=== PATIENT | female | born 1965 | race Caucasian/White ===

== ENCOUNTER 2018-02-19 16:58 | Emergency (ER) | payer SELFPAY ==
--- NOTE | 2018-02-19 17:06 | EDM.PDOC ---
<Fili Ceja E - Last Filed: 02/19/18 17:17> ED HPI GENERAL MEDICAL PROBLEM - General Stated Complaint: BACK PAIN Time Seen by Provider: 02/19/18 16:59 Source of Information: Reports: Patient History Limitations: Reports: No Limitations - History of Present Illness INITIAL COMMENTS - FREE TEXT/NARRATIVE: HISTORY AND PHYSICAL: History of present illness: Patient is a 52-year-old female who presents to the emergency room with complaints of low lumbar back pain. She does state she has chronic back pain from a workmen's comp injury about a year and a half ago. She did have a recent lumbar CT on 11/22/2017 which did show multiple degenerative disc disease within the lumbar spine and small diffuse disc bulging. She has had pain contracts in the past with a provider out of [place] which she states she stopped needing as of March 2017. Insect time she states she has not had much pain or problems with that. She uses Tylenol and ibuprofen as needed at home. Today she was reaching over and bending at the waist and felt a spasm to her low lumbar back which radiates across low region bilaterally but does not radiate into her glutes or legs. She has not had any urinary or fecal incontinence. She denies any numbness or tingling to her distal extremities. She is able to ambulate without any difficulty or weakness. Denies any recent injury, trauma or falls. Review of systems: As per history of present illness and below otherwise all systems reviewed and negative. Past medical history: As per history of present illness and as reviewed below otherwise noncontributory. Surgical history: As per history of present illness and as reviewed below otherwise noncontributory. Social history: No reported history of drug or alcohol abuse. Family history: As per history of present illness and as reviewed below otherwise noncontributory. Physical exam: General: Well-developed and well-nourished 52-year-old female. Alert and oriented. Nontoxic appearing and in no acute distress. HEENT: Atraumatic, normocephalic, pupils equal and reactive bilaterally, negative for conjunctival pallor or scleral icterus, mucous membranes moist, throat clear, neck supple, nontender, trachea midline. No drooling or trismus noted. No meningeal signs Lungs: Clear to auscultation, breath sounds equal bilaterally, chest nontender. Heart: S1S2, regular rate and rhythm without overt murmur Abdomen: Soft, nondistended, nontender. Negative for masses or hepatosplenomegaly. Negative for costovertebral tenderness. Pelvis: Stable nontender. Genitourinary: Deferred. Rectal: Deferred. C-spine/Back: No pinpoint vertebral tenderness upon palpation. No crepitus, step -offs or obvious deformities. She does have some musculoskeletal tenderness to the low lumbar region to bilateral [place]. She is able to ambulate and walk on heels and toes. No urinary or fecal incontinence. Skin: Intact, warm, dry. No lesions or rashes noted. Extremities: Atraumatic, negative for cords or calf pain. Neurovascular unremarkable. Neuro: Awake, alert, oriented. Cranial nerves II through XII unremarkable. Cerebellum unremarkable. Motor and sensory unremarkable throughout. Exam nonfocal. Notes: Since the patient recently had a CT of the lumbar spine and no new injury or trauma since that time both myself and the patient do not feel she needs any further imaging. We did discuss her previous history of narcotic/opioid dependence and withdrawal. She states she is aware that she has had issues in the past but does have medications available to her as her boyfriend does have chronic pain as well. She states she has not used any prescribed pain medication since March. Was able to look her up on [place] prescription monitoring website, this does correlate with her response. We'll give her Toradol and Norflex IM while here. Prescription for Medrol Dosepak, Flexeril and for home. Encouraged her to follow up with her primary care provider in the next couple days for further evaluation and management. Diagnostics: [] Therapeutics: Toradol, Norflex Impression: Back Pain Plan: 1. Please take the medications as prescribed. Gentle heat and stretching 2. Avoid sitting or being immobile for long periods of time as this can increase your back pain and muscle stiffness. 3. Follow-up with your primary care provider in the next 1-2 days. Return to the ED as needed and as discussed. Definitive disposition and diagnosis as appropriate pending reevaluation and review of above. 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: hysterectomy 20 years ago Musculoskeletal History: Reports: Fracture (left arm) Other Musculoskeletal History: fracture in left arm Psychiatric History: Reports: Addiction, Anxiety, Depression, Panic Attack, Suicide Attempt Other Psychiatric History: denies having any addictions - Past Surgical History GI Surgical History: Reports: Appendectomy, Cholecystectomy Female Surgical History: Reports: Hysterectomy Neurological Surgical History: Reports: C-Spine, Lumbar Spine Social & Family History - Family History Family Medical History: Noncontributory Psychiatric: Reports: None - Caffeine Use Caffeine Use: Reports: None ED ROS GENERAL - Review of Systems Review Of Systems: ROS reveals no pertinent complaints other than HPI. ED EXAM, GENERAL - Physical Exam Exam: See Below (See dictation) Course - Vital Signs Last Recorded V/S: Last Vital Signs Temp 37.1 C 02/19/18 17:06 Pulse 75 02/19/18 17:06 Resp 20 02/19/18 17:06 BP 149/100 H 02/19/18 17:06 Pulse Ox 100 02/19/18 17:06 - Orders/Labs/Meds Orders: Active Orders 24 hr Category Date Time Status Orphenadrine [Norflex] Med 02/19/18 17:30 Active 60 mg IM Q12H Medication Orders Orphenadrine Citrate (Norflex) 60 mg IM Q12H TOM Last Admin: 02/19/18 17:27 Dose: 60 mg Meds: Medications Generic Name Dose Route Start Last Admin Trade Name Freq PRN Reason Stop Dose Admin Orphenadrine Citrate 60 mg 02/19/18 17:30 02/19/18 17:27 Norflex IM 60 mg Q12H TOM Administration Discontinued Medications Generic Name Dose Route Start Last Admin Trade Name Freq PRN Reason Stop Dose Admin Ketorolac Tromethamine 60 mg 02/19/18 17:16 02/19/18 17:27 Toradol IM 02/19/18 17:17 60 mg ONETIME ONE Administration Departure - Departure Time of Disposition: 17:24 Disposition: Home, Self-Care 01 Clinical Impression: Back pain Qualifiers: Back pain location: low back pain Chronicity: unspecified Back pain laterality : bilateral Sciatica presence: without sciatica Qualified Code(s): M54.5 - Low back pain - Discharge Information Instructions: Back Pain, Adult, [id number] Referrals: PCP,None [Primary Care Provider] - Forms: ED Department Discharge Additional Instructions: The following information is given to patients seen in the emergency department who are being discharged to home. This information is to outline your options for follow-up care. We provide all patients seen in our emergency department with a follow-up referral. The need for follow-up, as well as the timing and circumstances, are variable depending upon the specifics of your emergency department visit. If you don't have a primary care physician on staff, we will provide you with a referral. We always advise you to contact your personal physician following an emergency department visit to inform them of the circumstance of the visit and for follow-up with them and/or the need for any referrals to a consulting specialist. The emergency department will also refer you to a specialist when appropriate. This referral assures that you have the opportunity for follow-up care with a specialist. All of these measure are taken in an effort to provide you with optimal care, which includes your follow-up. Under all circumstances we always encourage you to contact your private physician who remains a resource for coordinating your care. When calling for follow-up care, please make the office aware that this follow-up is from your recent emergency room visit. If for any reason you are refused follow-up, please contact the [facility] Emergency Department at and asked to speak to the emergency department charge nurse. [facility] Primary Care [address] [place] [id number] 1. Please take the medications as prescribed. Gentle heat and stretching 2. Avoid sitting or being immobile for long periods of time as this can increase your back pain and muscle stiffness. 3. Follow-up with your primary care provider in the next 1-2 days. Return to the ED as needed and as discussed. <Christina Bateman - Last Filed: 02/19/18 18:13> ED HPI GENERAL MEDICAL PROBLEM - History of Present Illness INITIAL COMMENTS - FREE TEXT/NARRATIVE: Please addend the history of present illness to state that the patient had an MRI of the lumbar spine not a CT scan. Personally reviewed that in this case with the nurse practitioner.
[2018-02-19] MEDS ORDERED: Ketorolac 60 MG/2 ML SDV IM ONE (17:16)
[2018-02-19 18:19] VITALS: BP 131/94
== END 2018-02-19 18:16 | disposition home or self-care (01) ==
LOC: MW.ED 16:58
DX: M54.5 Low back pain (principal)
CPT/HCPCS: 96372; 99283; J1885; J2360

== ENCOUNTER 2019-02-05 05:18 | Emergency (ER) | payer BC, OTHER ==
[2019-02-05] MEDS ORDERED: methylPREDNISolone Sodium Succinate 125 MG/2 ML SDV IM ONE (05:29)
[2019-02-05] MEDS ORDERED: EPINEPHrine 1 MG/ML SDV IM ONE (05:29)
[2019-02-05] MEDS ORDERED: Famotidine 20 MG Tab PO ONE (07:15)
--- NOTE | 2019-02-05 07:21 | EDM.PDOC ---
ED HPI GENERAL MEDICAL PROBLEM - General Chief Complaint: Skin Complaint Stated Complaint: RASH Time Seen by Provider: 02/05/19 07:16 Source of Information: Reports: Patient - History of Present Illness INITIAL COMMENTS - FREE TEXT/NARRATIVE: HISTORY AND PHYSICAL: History of present illness: [Patient presents with maculopapular itchy rash on bilateral extremities upper and lower, apparently on arrival she did have some tongue swelling sensation but has been in no distress since her arrival Dr. Judge had provided epinephrine as well as Solu-Medrol with improvement of itching She has no fever nausea vomiting chills sweats no chest pain shortness breath headache dizziness palpitation no bowel or urine symptoms no lip swelling tongue swelling or oral pharyngeal edema [place] to chew [place] the rash to some food she had eaten with her daughter in [place], she is not certain whether was a ravioli meal causing the symptoms are intermittent type of cake HEENT afterwards, her rash began shortly after this meal no other new food or medication contacts, previous allergy history Review of systems: As per history of present illness and below otherwise all systems reviewed and negative. Past medical history: As per history of present illness and as reviewed below otherwise noncontributory. Surgical history: As per history of present illness and as reviewed below otherwise noncontributory. Social history: No reported history of drug or alcohol abuse. Family history: As per history of present illness and as reviewed below otherwise noncontributory. Physical exam: HEENT: Atraumatic, normocephalic, pupils reactive, negative for conjunctival pallor or scleral icterus, mucous membranes moist, throat clear, neck supple, nontender, trachea midline. No lip swelling tongue swelling or oral pharyngeal edema Lungs: Clear to auscultation, breath sounds equal bilaterally, chest nontender. Heart: S1S2, regular, negative for clicks, rubs, or JVD. Abdomen: Soft, nondistended, nontender. Negative for masses or hepatosplenomegaly. Negative for costovertebral tenderness. Pelvis: Stable nontender. Genitourinary: Deferred. Rectal: Deferred. Extremities: Atraumatic, negative for cords or calf pain. Neurovascular unremarkable. Neuro: Awake, alert, oriented. Cranial nerves II through XII unremarkable. Cerebellum unremarkable. Motor and sensory unremarkable throughout. Exam nonfocal. Diagnostics: [] Therapeutics: [Epinephrine provided Solu-Medrol provided] Famotidine 20 mg by mouth now Prednisone 20 mg by mouth daily 5 days Zantac 150 by mouth twice a day Continue Benadryl Prescription for EpiPen provided Impression: [ allergic dermatitis ] Definitive disposition and diagnosis as appropriate pending reevaluation and review of above. 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 20 years ago Musculoskeletal History: Reports: Fracture Other Musculoskeletal History: fracture in left arm Neurological History: Reports: None Psychiatric History: Reports: Addiction, Anxiety, Depression, Panic Attack, Suicide Attempt Other Psychiatric History: denies having any addictions Endocrine/Metabolic History: Reports: None Hematologic History: Reports: None Immunologic History: Reports: None Oncologic (Cancer) History: Reports: None Dermatologic History: Reports: None - Infectious Disease History Infectious Disease History: Reports: Chicken Pox - Past Surgical History Head Surgeries/Procedures: Reports: None Cardiovascular Surgical History: Reports: Vascular Surgery GI Surgical History: Reports: Appendectomy, Cholecystectomy Female Surgical History: Reports: Hysterectomy Neurological Surgical History: Reports: C-Spine, Lumbar Spine Social & Family History - Family History Family Medical History: Noncontributory Psychiatric: Reports: None - Tobacco Use Smoking Status *Q: Never Smoker - Caffeine Use Caffeine Use: Reports: None - Recreational Drug Use Recreational Drug Use: No ED ROS GENERAL - Review of Systems Review Of Systems: See Below ED EXAM, SKIN/RASH Exam: See Below Course - Vital Signs Last Recorded V/S: Last Vital Signs Temp 97.1 F 02/05/19 05:25 Pulse 89 02/05/19 06:00 Resp 18 02/05/19 06:00 BP 120/77 02/05/19 05:25 Pulse Ox 98 02/05/19 06:00 - Orders/Labs/Meds Orders: Active Orders 24 hr Category Date Time Status Famotidine [Pepcid] Med 02/05/19 07:15 Once 20 mg PO ONETIME ONE Meds: Medications Discontinued Medications Generic Name Dose Route Start Last Admin Trade Name Estefany PRJamaal Reason Stop Dose Admin Epinephrine HCl 0.3 mg 02/05/19 05:29 02/05/19 05:40 Adrenalin IM 02/05/19 05:30 0.3 mg ONETIME ONE Administration Methylprednisolone Sodium Succinate 125 mg 02/05/19 05:29 02/05/19 05:40 Solu-Medrol IM 02/05/19 05:30 125 mg ONETIME ONE Administration Departure - Departure Time of Disposition: 07:20 Disposition: Home, Self-Care 01 Condition: Good Clinical Impression: Allergic dermatitis - Discharge Information Referrals: PCP,None [Primary Care Provider] - Additional Instructions: The following information is given to patients seen in the emergency department who are being discharged to home. This information is to outline your options for follow-up care. We provide all patients seen in our emergency department with a follow-up referral. The need for follow-up, as well as the timing and circumstances, are variable depending upon the specifics of your emergency department visit. If you don't have a primary care physician on staff, we will provide you with a referral. We always advise you to contact your personal physician following an emergency department visit to inform them of the circumstance of the visit and for follow-up with them and/or the need for any referrals to a consulting specialist. The emergency department will also refer you to a specialist when appropriate. This referral assures that you have the opportunity for follow-up care with a specialist. All of these measure are taken in an effort to provide you with optimal care, which includes your follow-up. Under all circumstances we always encourage you to contact your private physician who remains a resource for coordinating your care. When calling for follow-up care, please make the office aware that this follow-up is from your recent emergency room visit. If for any reason you are refused follow-up, please contact the [facility] emergency department at and asked to speak to the emergency department charge nurse. - My Orders Last 24 Hours: My Active Orders 02/05/19 07:15 Famotidine [Pepcid] 20 mg PO ONETIME ONE - Assessment/Plan Last 24 Hours: My Active Orders 02/05/19 07:15 Famotidine [Pepcid] 20 mg PO ONETIME ONE
[2019-02-05 07:36] VITALS: BP 121/73
== END 2019-02-05 07:35 | disposition home or self-care (01) ==
LOC: MW.ED 05:18
DX: L23.9 Allergic contact dermatitis, unspecified cause (principal); Z79.899 Other long term (current) drug therapy
CPT/HCPCS: 96372; 99282; A9270; J0171; J2930; 99283

== ENCOUNTER 2019-05-23 16:55 | Emergency (ER) | payer BC, OTHER ==
--- NOTE | 2019-05-23 17:10 | EDM.PDOC ---
ED HPI GENERAL MEDICAL PROBLEM - General Chief Complaint: Skin Complaint Stated Complaint: THROAT ITCHES Time Seen by Provider: 05/23/19 17:07 Source of Information: Reports: Patient History Limitations: Reports: No Limitations - History of Present Illness INITIAL COMMENTS - FREE TEXT/NARRATIVE: HISTORY AND PHYSICAL: History of present illness: Patient is a 53-year-old female who presents to the emergency room with complaints of pruritus. She states over the past 3-4 months she has had these small sores that she keeps scratching out on her arms, legs and upper chest/ neck. She has been seen in the emergency room, by Dr. Hankins and by Grace García for this complaint. She states she has been given steroids and Atarax and has not had any complete resolution of the symptoms. With the steroids she said the symptoms did improve but as soon as she completed the course of medication symptoms returned. She was just seen earlier in the week and was given Atarax but feels this is not helping the itching sensation. She does have an appointment with a implementation specialist payroll in [place] at the end of the month. Patient denies any fever, chills, headache, change in vision, syncope or near syncope. Denies any chest pain, back pain, shortness of breath or cough. Denies any abdominal pain, nausea, vomiting, diarrhea, constipation or dysuria. Has not noted any blood in urine or stool. Patient has been eating and drinking appropriately. Review of systems: As per history of present illness and below otherwise all systems reviewed and negative. Past medical history: As per history of present illness and as reviewed below otherwise noncontributory. Surgical history: As per history of present illness and as reviewed below otherwise noncontributory. Social history: See social history for further information Family history: As per history of present illness and as reviewed below otherwise noncontributory. Physical exam: General: Well-developed and well nourished 53-year-old female. Alert and oriented. Nontoxic appearing and in no acute distress. HEENT: Atraumatic, normocephalic, pupils equal and reactive bilaterally, negative for conjunctival pallor or scleral icterus, mucous membranes moist, TMs normal bilaterally, throat clear, neck supple, nontender, trachea midline. No drooling or trismus noted. No meningeal signs. No hot potato voice noted. Lungs: Clear to auscultation, breath sounds equal bilaterally, chest nontender. Heart: S1S2, regular rate and rhythm without overt murmur Abdomen: Soft, nondistended, nontender. Negative for masses or hepatosplenomegaly. Negative for costovertebral tenderness. Pelvis: Stable nontender. Skin: Small circular open sores to her forearms and bilateral lower extremities. Not infectious in appearance. Sores are localized without any surrounding erythema or drainage. Otherwise skin is intact, warm, dry. No lesions or rashes noted. Extremities: Atraumatic, moves all extremities per self without difficulty or deficits, negative for cords or calf pain. Neurovascular unremarkable. Neuro: Awake, alert, oriented. Cranial nerves II through XII unremarkable. Cerebellum unremarkable. Motor and sensory unremarkable throughout. Exam nonfocal. Notes: Patient is very fidgety on the cot tennis actively scratching at her neck and forearms. She denies any drug abuse. She has been evaluated several times by primary care who all agree that this is contact dermatitis in appearance. She states she had best relief with steroids, will give Medrol Dosepak. We'll encourage her to take both and H1 and H2 tyson and follow-up with the implementation specialist payroll if she already has arranged. Supportive care measures were reviewed and discussed. Voices understanding and is agreeable to plan of care. Denies any further questions or concerns at this time. Diagnostics: Strep Screening Therapeutics: Solu-Medrol, Benadryl Prescription: Medrol Dosepak Hydrocortisone Cream Impression: Contact Dermatitis Plan: 1. You can apply the hydrocortisone cream to the areas sparingly twice daily ( Do not apply to your face). 2. Continue taking your hydroxyzine (H1 Tyson). Take Zatanac or Pepcid (H2 tyson) as directed routinely over the next 1-2 weeks 3. Follow-up with the implementation specialist payroll as we discussed. 4. Return to the ED as needed and as discussed. Definitive disposition and diagnosis as appropriate pending reevaluation and review of above. - Related Data Allergies Allergy/AdvReac Type Severity Reaction Status Date / Time No Known Allergies Allergy Verified 05/23/19 17:14 Home Meds: Home Meds Doxepin [SINEquan] 100 mg PO DAILY 02/19/18 [History] Hydrocortisone [Hydrocortisone 2.5% Crm] 1 dose TOP BID PRN #1 tube 05/23/19 [Rx ] methylPREDNISolone [Medrol] 1 dose PO DAILY 6 Days #1 dospk 05/23/19 [Rx] Past Medical History - Past Health History Medical/Surgical History: Denies Medical/Surgical History HEENT History: Reports: None Cardiovascular History: Reports: None Respiratory History: Reports: None Gastrointestinal History: Reports: None Genitourinary History: Reports: None 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 PROTOZOOLOGY TEACHER History: hysterectomy 20 years ago Musculoskeletal History: Reports: Fracture Other Musculoskeletal History: fracture in left arm Neurological History: Reports: None Psychiatric History: Reports: Addiction, Anxiety, Depression, Panic Attack, Suicide Attempt Other Psychiatric History: denies having any addictions Endocrine/Metabolic History: Reports: None Hematologic History: Reports: None Immunologic History: Reports: None Oncologic (Cancer) History: Reports: None Dermatologic History: Reports: None - Infectious Disease History Infectious Disease History: Reports: Chicken Pox - Past Surgical History Head Surgeries/Procedures: Reports: None Cardiovascular Surgical History: Reports: Vascular Surgery GI Surgical History: Reports: Appendectomy, Cholecystectomy Female Surgical History: Reports: Hysterectomy Neurological Surgical History: Reports: C-Spine, Lumbar Spine Social & Family History - Family History Family Medical History: Noncontributory Psychiatric: Reports: None - Caffeine Use Caffeine Use: Reports: None ED ROS GENERAL - Review of Systems Review Of Systems: ROS reveals no pertinent complaints other than HPI. ED EXAM, SKIN/RASH Exam: See Below (See dictation) Course - Vital Signs Last Recorded V/S: Last Vital Signs Temp 97.2 F 05/23/19 17:12 Pulse 82 05/23/19 17:52 Resp 18 05/23/19 17:52 BP 145/103 H 05/23/19 17:52 Pulse Ox 98 05/23/19 17:52 - Orders/Labs/Meds Meds: Medications Discontinued Medications Generic Name Dose Route Start Last Admin Trade Name Freq PRN Reason Stop Dose Admin Diphenhydramine HCl 50 mg 05/23/19 17:23 05/23/19 17:31 Benadryl IM 05/23/19 17:24 50 mg ONETIME ONE Administration Methylprednisolone Sodium Succinate 125 mg 05/23/19 17:23 05/23/19 17:31 Solu-Medrol IM 05/23/19 17:24 125 mg ONETIME ONE Administration Departure - Departure Time of Disposition: 17:33 Disposition: Home, Self-Care 01 Clinical Impression: Contact dermatitis Qualifiers: Contact dermatitis type: irritant Contact dermatitis trigger: unspecified trigger Qualified Code(s): L24.9 - Irritant contact dermatitis, unspecified cause - Discharge Information Prescriptions: Hydrocortisone [Hydrocortisone 2.5% Crm] 1 dose TOP BID PRN #1 tube PRN Reason: Itching methylPREDNISolone [Medrol] 1 dose PO DAILY 6 Days #1 dospk Instructions: Contact Dermatitis, [id number] Referrals: Maida Cobian NP [Primary Care Provider] - Forms: ED Department Discharge Additional Instructions: The following information is given to patients seen in the emergency department who are being discharged to home. This information is to outline your options for follow-up care. We provide all patients seen in our emergency department with a follow-up referral. The need for follow-up, as well as the timing and circumstances, are variable depending upon the specifics of your emergency department visit. If you don't have a primary care physician on staff, we will provide you with a referral. We always advise you to contact your personal physician following an emergency department visit to inform them of the circumstance of the visit and for follow-up with them and/or the need for any referrals to a consulting specialist. The emergency department will also refer you to a specialist when appropriate. This referral assures that you have the opportunity for follow-up care with a specialist. All of these measure are taken in an effort to provide you with optimal care, which includes your follow-up. Under all circumstances we always encourage you to contact your private physician who remains a resource for coordinating your care. When calling for follow-up care, please make the office aware that this follow-up is from your recent emergency room visit. If for any reason you are refused follow-up, please contact the [facility] Emergency Department at and asked to speak to the emergency department charge nurse. [facility] [address] [place] [id number] [address] 1. You can apply the hydrocortisone cream to the areas sparingly twice daily ( Do not apply to your face). 2. Continue taking your hydroxyzine (H1 Tyson). Take Zantac or Pepcid (H2 tyson) as directed routinely over the next 1-2 weeks 3. Follow-up with the implementation specialist payroll as we discussed. 4. Return to the ED as needed and as discussed.
[2019-05-23] MEDS ORDERED: methylPREDNISolone Sodium Succinate 125 MG/2 ML SDV IM ONE (17:23)
[2019-05-23] MEDS ORDERED: diphenhydrAMINE 50 MG/ML SDV IM ONE (17:23)
[2019-05-23 17:53] VITALS: BP 145/103; PULSE 82
== END 2019-05-23 17:49 | disposition home or self-care (01) ==
LOC: MW.ED 16:55
DX: L24.9 Irritant contact dermatitis, unspecified cause (principal); F32.9 Major depressive disorder, single episode, unspecified; F41.9 Anxiety disorder, unspecified; Z79.899 Other long term (current) drug therapy
CPT/HCPCS: 96372; 99283; J1200; J2930

== ENCOUNTER 2019-06-19 10:03 | Emergency (ER) | payer BC ==
--- NOTE | 2019-06-19 10:31 | EDM.PDOC ---
ED HPI GENERAL MEDICAL PROBLEM - General Chief Complaint: Skin Complaint Stated Complaint: RASH Time Seen by Provider: 06/19/19 10:28 Source of Information: Reports: Patient History Limitations: Reports: No Limitations - History of Present Illness INITIAL COMMENTS - FREE TEXT/NARRATIVE: HISTORY AND PHYSICAL: History of present illness: Patient is a 53-year-old female presents to the ED with complaint of rash. She has been seen for this rash in the past. She states it only gets better with steroids but always comes back. She has seen her primary care provider and was referred to an heavy equipment field mechanic as a milking machine technician can not see her for 5 months. She is scheduled to see an heavy equipment field mechanic on 06/28/19. She states the rash has spread to her face but otherwise is unchanged. She states it is very itchy and she is out of her hydroxyzine. She has no other complaints at this time. Review of systems: As per history of present illness and below otherwise all systems reviewed and negative. Past medical history: As per history of present illness and as reviewed below otherwise noncontributory. Surgical history: As per history of present illness and as reviewed below otherwise noncontributory. Social history: No reported history of drug or alcohol abuse. Family history: As per history of present illness and as reviewed below otherwise noncontributory. Physical exam: General: Patient sitting comfortably in no acute distress and nontoxic appearing HEENT: Atraumatic, normocephalic, pupils reactive, negative for conjunctival pallor or scleral icterus, mucous membranes moist, throat clear, neck supple, nontender, trachea midline. No meningeal signs. Lungs: Clear to auscultation, breath sounds equal bilaterally, chest nontender. Heart: S1S2, regular, negative for clicks, rubs, or overt murmur. Abdomen: Soft, nondistended, nontender. Negative for masses or hepatosplenomegaly. Negative for costovertebral tenderness. No rigidity, rebound , guarding. Pelvis: Stable nontender. Genitourinary: Deferred. Rectal: Deferred. Skin: dime sized erythematous scaly lesions on her arms, neck, and face. Extremities: Atraumatic, negative for cords or calf pain. Neurovascular unremarkable. Neuro: Awake, alert, oriented. Cranial nerves II through XII unremarkable. Cerebellum unremarkable. Motor and sensory unremarkable throughout. Exam nonfocal. Notes: Diagnostics: [] Therapeutics: [] Prescriptions: Medrol dosepak Hydroxyzine Impression: Pruritic rash Plan: Take medication as instructed Follow-up with primary care provider Return to ED as needed as discussed Definitive disposition and diagnosis as appropriate pending reevaluation and review of above. - Related Data Allergies Allergy/AdvReac Type Severity Reaction Status Date / Time No Known Allergies Allergy Verified 06/19/19 10:09 Home Meds: Home Meds Doxepin [SINEquan] 100 mg PO DAILY 02/19/18 [History] hydrOXYzine HCl [Atarax] 25 mg PO Q8H #20 tab 06/19/19 [Rx] methylPREDNISolone [Medrol] 4 mg PO ASDIRECTED #1 dospk 06/19/19 [Rx] Past Medical History - Past Health History Medical/Surgical History: Denies Medical/Surgical History HEENT History: Reports: None Cardiovascular History: Reports: None Respiratory History: Reports: None Gastrointestinal History: Reports: None Genitourinary History: Reports: None 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 PROFESSIONAL 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: hysterectomy 20 years ago Musculoskeletal History: Reports: Fracture Other Musculoskeletal History: fracture in left arm Neurological History: Reports: None Psychiatric History: Reports: Addiction, Anxiety, Depression, Panic Attack, Suicide Attempt Other Psychiatric History: denies having any addictions Endocrine/Metabolic History: Reports: None Hematologic History: Reports: None Immunologic History: Reports: None Oncologic (Cancer) History: Reports: None Dermatologic History: Reports: None - Infectious Disease History Infectious Disease History: Reports: Chicken Pox - Past Surgical History Head Surgeries/Procedures: Reports: None Cardiovascular Surgical History: Reports: Vascular Surgery GI Surgical History: Reports: Appendectomy, Cholecystectomy Female Surgical History: Reports: Hysterectomy Neurological Surgical History: Reports: C-Spine, Lumbar Spine Social & Family History - Family History Family Medical History: Noncontributory Psychiatric: Reports: None - Tobacco Use Smoking Status *Q: Never Smoker Second Hand Smoke Exposure: No - Caffeine Use Caffeine Use: Reports: Coffee - Recreational Drug Use Recreational Drug Use: No ED ROS GENERAL - Review of Systems Review Of Systems: ROS reveals no pertinent complaints other than HPI. ED EXAM, SKIN/RASH Exam: See Below (see dictation) Course - Vital Signs Last Recorded V/S: Last Vital Signs Temp 96.6 F 06/19/19 10:10 Pulse 94 06/19/19 10:10 Resp 18 06/19/19 10:10 BP 146/77 H 06/19/19 10:10 Pulse Ox 97 06/19/19 10:10 - Orders/Labs/Meds Orders: Active Orders 24 hr Category Date Time Status diphenhydrAMINE [Benadryl] Med 06/19/19 10:34 Once 25 mg IM ONETIME ONE methylPREDNISolone Sod Succ [Solu-MEDROL] Med 06/19/19 10:32 Once 125 mg IM ONETIME ONE Departure - Departure Time of Disposition: 10:35 Disposition: Home, Self-Care 01 Condition: Good Clinical Impression: Pruritic rash - Discharge Information Referrals: Maida Cobian NP [Primary Care Provider] - Forms: ED Department Discharge Additional Instructions: The following information is given to patients seen in the emergency department who are being discharged to home. This information is to outline your options for follow-up care. We provide all patients seen in our emergency department with a follow-up referral. The need for follow-up, as well as the timing and circumstances, are variable depending upon the specifics of your emergency department visit. If you don't have a primary care physician on staff, we will provide you with a referral. We always advise you to contact your personal physician following an emergency department visit to inform them of the circumstance of the visit and for follow-up with them and/or the need for any referrals to a consulting specialist. The emergency department will also refer you to a specialist when appropriate. This referral assures that you have the opportunity for follow-up care with a specialist. All of these measure are taken in an effort to provide you with optimal care, which includes your follow-up. Under all circumstances we always encourage you to contact your private physician who remains a resource for coordinating your care. When calling for follow-up care, please make the office aware that this follow-up is from your recent emergency room visit. If for any reason you are refused follow-up, please contact the [facility] Emergency Department at and asked to speak to the emergency department charge nurse. [facility] Primary [facility] [address] [place] [id number] [facility] [address] [place] [id number] Take medication as instructed Follow-up with primary care provider Return to ED as needed as discussed - My Orders Last 24 Hours: My Active Orders 06/19/19 10:32 methylPREDNISolone Sod Succ [Solu-MEDROL] 125 mg IM ONETIME ONE 06/19/19 10:34 diphenhydrAMINE [Benadryl] 25 mg IM ONETIME ONE - Assessment/Plan Last 24 Hours: My Active Orders 06/19/19 10:32 methylPREDNISolone Sod Succ [Solu-MEDROL] 125 mg IM ONETIME ONE 06/19/19 10:34 diphenhydrAMINE [Benadryl] 25 mg IM ONETIME ONE
[2019-06-19] MEDS ORDERED: methylPREDNISolone Sodium Succinate 125 MG/2 ML SDV IM ONE (10:32)
[2019-06-19] MEDS ORDERED: diphenhydrAMINE 50 MG/ML SDV IM ONE (10:34)
[2019-06-19 11:17] VITALS: BP 142/99; PULSE 93
== END 2019-06-19 11:08 | disposition home or self-care (01) ==
LOC: MW.ED 10:03
DX: R21 Rash and other nonspecific skin eruption (principal); L29.9 Pruritus, unspecified; F32.9 Major depressive disorder, single episode, unspecified; F41.9 Anxiety disorder, unspecified; Z79.899 Other long term (current) drug therapy
CPT/HCPCS: 96372; 99282; J1200; J2930

== ENCOUNTER 2019-10-23 01:04 | Emergency (ER) | payer BC ==
[2019-10-23 01:17] VITALS: BP 141/97; PULSE 78
[2019-10-23] MEDS ORDERED: diphenhydrAMINE 50 MG/ML SDV IVPUSH ONE (01:39)
[2019-10-23] MEDS ORDERED: Metoclopramide 10 MG/2 ML SDV IVPUSH ONE (01:39)
--- NOTE | 2019-10-23 01:43 | EDM.PDOC ---
ED HPI GENERAL MEDICAL PROBLEM - General Chief Complaint: Headache Stated Complaint: HEADACHES Time Seen by Provider: 10/23/19 01:10 Source of Information: Reports: Patient - History of Present Illness INITIAL COMMENTS - FREE TEXT/NARRATIVE: The patient is a 53-year-old female who presents to the ER complaining of a severe left periorbital headache. She states she has never had anything like this before. She has had migraines in the past but they have always been bilateral and never sudden onset and severe like this. She states that she was sleeping and she woke up with this severe headache. There is some mild photophobia but no nausea, no pounding sensation just a severe sharp stabbing pain in her orbital region. No neck pain, no fevers, no cough, no nasal congestion, no weakness, no other acute complaints. Left Headache Pain Score (Numeric/FACES): 10 - Related Data Allergies Allergy/AdvReac Type Severity Reaction Status Date / Time No Known Allergies Allergy Verified 10/23/19 01:18 Home Meds: Home Meds Doxepin [SINEquan] 100 mg PO DAILY 02/19/18 [History] hydrOXYzine HCL [Atarax] 25 mg PO Q8H #20 tab 06/19/19 [Rx] methylPREDNISolone [Medrol] 4 mg PO ASDIRECTED #1 dospk 06/19/19 [Rx] hydroCHLOROthiazide [Hydrochlorothiazide] 12.5 mg PO DAILY 10/23/19 [History] Past Medical History - Past Health History Medical/Surgical History: Denies Medical/Surgical History HEENT History: Reports: None Cardiovascular History: Reports: Hypertension Respiratory History: Reports: None Gastrointestinal History: Reports: None Genitourinary History: Reports: None 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 ADVISOR History: hysterectomy 20 years ago Musculoskeletal History: Reports: Fracture Other Musculoskeletal History: fracture in left arm Neurological History: Reports: Migraines Psychiatric History: Reports: Addiction, Anxiety, Depression, Panic Attack, Suicide Attempt Other Psychiatric History: denies having any addictions Endocrine/Metabolic History: Reports: None Hematologic History: Reports: None Immunologic History: Reports: None Oncologic (Cancer) History: Reports: None Dermatologic History: Reports: None - Infectious Disease History Infectious Disease History: Reports: Chicken Pox - Past Surgical History Head Surgeries/Procedures: Reports: None Cardiovascular Surgical History: Reports: Vascular Surgery GI Surgical History: Reports: Appendectomy, Cholecystectomy Female Surgical History: Reports: Hysterectomy Neurological Surgical History: Reports: C-Spine, Lumbar Spine Social & Family History - Family History Family Medical History: Noncontributory Psychiatric: Reports: None - Tobacco Use Smoking Status *Q: Never Smoker - Caffeine Use Caffeine Use: Reports: Coffee - Recreational Drug Use Recreational Drug Use: No ED ROS GENERAL - Review of Systems Review Of Systems: See Below (Positive for headache, positive for mild photophobia, negative for nausea, negative for fevers, negative for weakness, all other Positives and pertinent negatives as per HPI. All other pertinent systems were reviewed and are negative) - Physical Exam Exam: See Below Text/Narrative:: Constitutional: Nontoxic, looks uncomfortable holding the left side of her head HEENT: Normocephalic, Atraumatic, PERRL, EOMI Neck: Normal range of motion, No stridor, trachea midline, no meningismus Respiratory: No respiratory distress, No tachypnea Cardiovascular: Deferred Gastrointestinal: Deferred Genital / Urinary: Deferred Musculoskeletal: All four extremities present and atraumatic Back: FROM Integument: Warm, Dry, Color is ethnicity appropriate, No rash. Neuro: Alert, Awake, oriented x3, cranial nerves grossly intact, normal gait, cerebellar function tests intact, no focal deficits noted Psych: Affect, Judgement, mood normal Course - Vital Signs Text/Narrative:: Given the entire history and exam the patient will have a CT scan of the brain without contrast to essentially rule out subarachnoid hemorrhage. CT scan of the brain was reviewed and interpreted by me and will be over read by radiology but on my reading there are no signs of any intracranial hemorrhage , intracerebral hemorrhage, obvious brain mass, cerebral edema or any acute process. Current literature is clear that if the patient has a negative CT scan within 6 hours of the onset of a sudden onset headache clinically relevant subarachnoid hemorrhages have been ruled out and lumbar puncture is not needed. Furthermore , given the entire clinical history and exam I am not concerned about meningitis , encephalitis, or any other malignant pathology. The patient will be treated for a migraine and she will be given Reglan 10 mg IV and Benadryl 50 mg IV and reassessed. The patient states that she is feeling better now and is ready to be discharged home. Stable for discharge. Last Recorded V/S: Last Vital Signs Temp 36.7 C 10/23/19 01:06 Pulse 78 10/23/19 01:06 Resp 18 10/23/19 01:06 BP 141/97 H 10/23/19 01:06 Pulse Ox 98 10/23/19 01:06 - Orders/Labs/Meds Meds: Medications Discontinued Medications Generic Name Dose Route Start Last Admin Trade Name Estefany PRN Reason Stop Dose Admin Diphenhydramine HCl 50 mg 10/23/19 01:39 10/23/19 01:58 Benadryl IVPUSH 10/23/19 01:40 50 mg ONETIME ONE Administration Metoclopramide HCl 10 mg 10/23/19 01:39 10/23/19 01:58 Reglan IVPUSH 10/23/19 01:40 10 mg ONETIME ONE Administration Departure - Departure Time of Disposition: 02:14 Disposition: Home, Self-Care 01 Condition: Good Clinical Impression: Migraine - Discharge Information *PRESCRIPTION DRUG MONITORING PROGRAM REVIEWED*: Not Applicable *COPY OF PRESCRIPTION DRUG MONITORING REPORT IN PATIENT DANIEL: Not Applicable Instructions: Migraine Headache, [id number] Referrals: Dasia Juarez MD [Primary Care Provider] - Forms: ED Department Discharge Sepsis Event Note - Evaluation Sepsis Screening Result: No Definite Risk - Focused Exam Vital Signs: Vital Signs Temp Pulse Resp BP Pulse Ox 10/23/19 01:06 36.7 C 78 18 141/97 H 98 Date Exam was Performed: 10/23/19 Time Exam was Performed: 02:14
--- NOTE | 2019-10-23 01:45 | CT ---
INDICATION: Headache TECHNIQUE: CT head without contrast. COMPARISON: None. FINDINGS: CSF spaces: Within normal limits for age. Brain parenchyma: The garza-white differentiation is normal. No sign of mass, hemorrhage, or midline shift. Skull base and calvarium: Mucous retention cyst right maxillary sinus. Small right mastoid fluid. The visualized orbits are grossly unremarkable. No skull fractures. IMPRESSION: 1. No intracranial bleed or mass effect. 2. Small right mastoid fluid. Please note that all CT scans at this facility use dose modulation, iterative reconstruction, and/or weight-based dosing when appropriate to reduce radiation dose to as low as reasonably achievable. Dictated by Diego Cochran MD @ Oct 23 2019 1:37AM Signed by Dr. Diego Cochran @ Oct 23 2019 1:44AM
== END 2019-10-23 02:24 | disposition home or self-care (01) ==
LOC: MW.ED 01:04
DX: G43.909 Migraine, unspecified, not intractable, without status migrainosus (principal); I10 Essential (primary) hypertension; F41.0 Panic disorder [episodic paroxysmal anxiety]; F32.9 Major depressive disorder, single episode, unspecified; Z79.899 Other long term (current) drug therapy
CPT/HCPCS: 70450; 96374; 96375; 99284; J1200; J2765

== ENCOUNTER 2020-04-14 06:41 | Day surgery (SDC) | payer BC ==
[~2020-04-14 06:41] MED LIST: Lactated Ringers 1,000 ML IV SCH; ceFAZolin 2 GM in Premix Bag 1 BAG IV SCH
[2020-04-14] MEDS ORDERED: Bupivacaine 0.5% 10 ML SDV ONE (07:09)
[2020-04-14] MEDS ORDERED: Lidocaine 2% 5 ML SDV ONE (07:12)
[2020-04-14] MEDS ORDERED: Propofol 200 MG/20 ML SDV ONE (07:12)
[2020-04-14] MEDS ORDERED: fentaNYL 100 MCG/2 ML SDV ONE (07:12)
[2020-04-14] MEDS ORDERED: Ondansetron 4 MG/2 ML SDV ONE (07:12)
[2020-04-14] MEDS ORDERED: Sodium Chloride 0.9% 20 ML ONE (07:13)
[2020-04-14] MEDS ORDERED: HYDROmorphone 2 MG/ML Syringe ONE (07:13)
[2020-04-14] MEDS ORDERED: Midazolam 1 MG/ML 2 ML SDV ONE (07:15)
[2020-04-14] MEDS ORDERED: Lidocaine 1% 20 ML MDV ONE (07:20)
--- NOTE | 2020-04-14 07:40 | PCM.PREANE ---
Preanesthetic Assessment - Anesthesia/Transfusion/Family Hx Anesthesia History: Prior Anesthesia Without Reaction Family History of Anesthesia Reaction: No Transfusion History: Prior Transfusion Without Reaction - Review of Systems General: No Symptoms Pulmonary: No Symptoms Cardiovascular: No Symptoms Gastrointestinal: No Symptoms Neurological: No Symptoms Other: Reports: None - Physical Assessment NPO Status Date: 04/13/20 Vital Signs: Last Vital Signs Temp 97.5 F 04/14/20 07:14 Pulse 66 04/14/20 07:14 Resp 16 04/14/20 07:14 BP 133/94 H 04/14/20 07:14 Pulse Ox 93 L 04/14/20 07:14 Height: 5 ft 11 in Weight: 96.162 kg ASA Class: 2 Mental Status: Alert & Oriented x3 Airway Class: Mallampati = 1 Dentition: Reports: Normal Dentition ROM/Head Extension: Full Lungs: Clear to Auscultation, Normal Respiratory Effort Cardiovascular: Regular Rate, Regular Rhythm - Allergies Allergies/Adverse Reactions: Allergies Allergy/AdvReac Type Severity Reaction Status Date / Time No Known Allergies Allergy Verified 04/08/20 10:14 - Blood Blood Available: No - Acknowledgements Anesthesia Type Planned: General Anesthesia, MAC (pmh: htn, gabipentin for pruritis) Pt an Appropriate Candidate for the Planned Anesthesia: Yes Alternatives and Risks of Anesthesia Discussed w Pt/Guardian: Yes Pt/Guardian Understands and Agrees with Anesthesia Plan: Yes PreAnesthesia Questionnaire - Past Health History Medical/Surgical History: Denies Medical/Surgical History HEENT History: Reports: None Other HEENT History: wears glasses, bottom partial Cardiovascular History: Reports: Hypertension Other Cardiovascular History: hx DVT to right lower leg "years ago, in the " Respiratory History: Reports: None Gastrointestinal History: Reports: None Genitourinary History: Reports: None 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 OB/BYN History: hysterectomy 20 years ago Musculoskeletal History: Reports: Fracture Other Musculoskeletal History: fracture in left arm Neurological History: Reports: Migraines Psychiatric History: Reports: Addiction, Anxiety, Depression, Panic Attack, Suicide Attempt Other Psychiatric History: denies having any addictions Endocrine/Metabolic History: Reports: None Hematologic History: Reports: None Other Hematologic History: hx transfusion after delivery Immunologic History: Reports: None Oncologic (Cancer) History: Reports: None Other Oncologic History: melanoma -left lateral leg Dermatologic History: Reports: None Other Dermatologic History: prurigo - Infectious Disease History Infectious Disease History: Reports: Chicken Pox - Past Surgical History Head Surgeries/Procedures: Reports: None HEENT Surgical History: Reports: None Cardiovascular Surgical History: Reports: Vascular Surgery Respiratory Surgical History: Reports: None GI Surgical History: Reports: Appendectomy, Cholecystectomy Other GI Surgeries/Procedures: mass removed Female Surgical History: Reports: Hysterectomy Other Female Surgeries/Procedures: hx laparoscopy Endocrine Surgical History: Reports: None Neurological Surgical History: Reports: C-Spine, Lumbar Spine Other Neurological Surgeries/Procedures: cervical fusion x2 Musculoskeletal Surgical History: Reports: Other (See Below) Other Musculoskeletal Surgeries/Procedures:: neck surgery Oncologic Surgical History: Reports: None Dermatological Surgical History: Reports: None - SUBSTANCE USE Smoking Status *Q: Never Smoker - HOME MEDS Home Medications: Home Meds Gabapentin [Neurontin] 3 tab PO TID 04/08/20 [History] Propranolol HCl 40 mg PO BID 04/08/20 [History] Triamcinolone Acetonide [Triamcinolone Acetonide 0.1% Crm] 1 applic TOP ASDIRECTED PRN 04/08/20 [History] - CURRENT (IN HOUSE) MEDS Current Meds: Current Medications Cefazolin Sodium/Dextrose 2 gm (/ Premix) 50 mls @ 100 mls/hr IV ONETIME TOM Lactated Ringer's (Ringers, Lactated) 1,000 mls @ 125 mls/hr IV ASDIRECTED TOM Discontinued Medications Bupivacaine HCl (Sensorcaine-Mpf 0.5%) Confirm Administered Dose 10 ml .ROUTE .STK-MED ONE Stop: 04/14/20 07:10 Fentanyl (Sublimaze) Confirm Administered Dose 100 mcg .ROUTE .STK-MED ONE Stop: 04/14/20 07:13 Hydromorphone HCl (Dilaudid) Confirm Administered Dose 2 mg .ROUTE .STK-MED ONE Stop: 04/14/20 07:14 Sodium Chloride (Normal Saline) Confirm Administered Dose 20 mls @ as directed .ROUTE .STK-MED ONE Stop: 04/14/20 07:14 Lidocaine (Xylocaine-Mpf 2%) Confirm Administered Dose 5 ml .ROUTE .STK-MED ONE Stop: 04/14/20 07:13 Lidocaine HCl (Xylocaine 1%) Confirm Administered Dose 20 ml .ROUTE .STK-MED ONE Stop: 04/14/20 07:21 Midazolam HCl (Versed 1 Mg/Ml) Confirm Administered Dose 2 mg .ROUTE .STK-MED ONE Stop: 04/14/20 07:16 Ondansetron HCl (Zofran) Confirm Administered Dose 4 mg .ROUTE .STK-MED ONE Stop: 04/14/20 07:13 Propofol (Diprivan 20 Ml) Confirm Administered Dose 200 mg .ROUTE .STK-MED ONE Stop: 04/14/20 07:13
[2020-04-14] MEDS ORDERED: Glycopyrrolate 0.2 MG/ML SDV ONE (08:12)
[2020-04-14] MEDS ORDERED: ePHEDrine 50 MG/ML SDV ONE (08:14)
[2020-04-14] MEDS ORDERED: Acetaminophen/HYDROcodone 325-5 MG Tab PO PRN (09:06)
[2020-04-14] MEDS ORDERED: Acetaminophen 1,000 MG in Premix Bag 1 BAG IV ONE (09:12)
[2020-04-14] MEDS ORDERED: Ketorolac 30 MG/ML SDV IVPUSH ONE (09:13)
[2020-04-14] MEDS ORDERED: Lactated Ringers 1,000 ML IV SCH (09:15)
--- NOTE | 2020-04-14 09:25 | PCM.OPNOTE ---
- General Post-Op/Procedure Note Date of Surgery/Procedure: 04/14/20 Operative Procedure(s): Wde local excision 16 mm superficial spreading melanoma, left lateral thigh. Layered 15 cm closure. Pre Op Diagnosis: Superficial spreading melanoma, left laterral thigh Post-Op Diagnosis: Same Anesthesia Technique: General LMA (ASA II) Primary Surgeon: Bhavin Hooper Fluid Replacement, Intraop: 300 EBL in mLs: 10 Condition: Good Free Text/Narrative:: DICTATION 016584 CPT CODE 48007/61648
--- NOTE | 2020-04-14 10:38 | PCM.POSTAN ---
POST ANESTHESIA ASSESSMENT - MENTAL STATUS Mental Status: Alert, Oriented - VITAL SIGNS Vital Signs: Last Vital Signs Temp 97.2 F 04/14/20 08:56 Pulse 49 L 04/14/20 09:32 Resp 12 04/14/20 09:32 BP 136/68 04/14/20 09:32 Pulse Ox 95 04/14/20 09:32 - RESPIRATORY Respiratory Status: Respiratory Rate WNL, Airway Patent, O2 Saturation Stable - CARDIOVASCULAR CV Status: Pulse Rate WNL, Blood Pressure Stable - GASTROINTESTINAL GI Status: No Symptoms - POST OP HYDRATION Hydration Status: Adequate & Stable
--- NOTE | 2020-04-14 10:39 | PCM48HPAN ---
Post Anesthesia Note - EVALUATION WITHIN 48HRS OF ANESTHETIC Vital Signs in Normal Range: Yes Patient Participated in Evaluation: Yes Respiratory Function Stable: Yes Airway Patent: Yes Cardiovascular Function Stable: Yes Hydration Status Stable: Yes Pain Control Satisfactory: Yes Nausea and Vomiting Control Satisfactory: Yes Mental Status Recovered: Yes Vital Signs: Last Vital Signs Temp 97.2 F 04/14/20 08:56 Pulse 49 L 04/14/20 09:32 Resp 12 04/14/20 09:32 BP 136/68 04/14/20 09:32 Pulse Ox 95 04/14/20 09:32
[2020-04-14 12:22] VITALS: BP 131/68; PULSE 47
--- NOTE | 2020-04-15 13:20 | OR ---
SURGEON: Bhavin Hooper M.D. DATE OF PROCEDURE: 04/14/2020 OPERATION PERFORMED: Wide local excision, 16 mm, superficial spreading melanoma with layered 15 cm closure. PRIMARY SURGEON: Bhavin Hooper MD ANESTHESIA: General LMA. ASA CLASSIFICATION: II. PREOPERATIVE DIAGNOSIS: Shave biopsy-proven superficial spreading melanoma, left lateral leg. POSTOPERATIVE DIAGNOSIS: Shave biopsy-proven superficial spreading melanoma, left lateral leg. ESTIMATED BLOOD LOSS: 10 mL. INTRAOPERATIVE FLUID REPLACEMENT: 300 mL of crystalloid. DESCRIPTION OF PROCEDURE: The patient was taken to the operating room and placed on the operating table in the supine position. Time-out was called for appropriate identification of the patient and procedure. Following satisfactory attainment of general anesthesia with placement of an LMA, the patient was positioned in the right lateral decubitus position on the beanbag. She was secured to the table with multiple straps and the beanbag deflated. Sequential compression boot was placed on the right leg. We were not able to use one on the left leg because of the prep. The surgical site was prepped with Betadine solution and sterile drapes were applied. Skin incision was marked out to encompass a 1 cm margin anteriorly and posteriorly to the lesion. The total length of the excision was to be 15 cm. With that accomplished, skin incision was made ellipsing out the entire area down to the fascia. This was done with electrocautery to minimize bleeding. The entire specimen was removed with full-thickness skin and subcutaneous tissue. Bleeding sites were electrocoagulated. A 2-0 silk suture was placed at the superior aspect of the specimen for orientation purposes. The wound was then inspected for hemostasis and again bleeding sites were electrocoagulated. The incision was then infiltrated with 10ml of 0.5% Bupivacaine. The incision was then closed in layers. The subcutaneous tissue was reapproximated with multiple interrupted 2-0 Vicryl sutures. The skin was reapproximated with a combination of interrupted 2-0 and 3-0 nylon sutures. Once the wound was closed and the surgical site cleansed, this was dressed with a sterile Tegaderm pad. Sponge, needle, and instrument counts were all correct. The patient was now positioned back on the OR table in the supine position and the beanbag deflated. Following emergence from anesthesia and extubation, the patient was taken to recovery room in stable condition. ANDPEDRO PABLO / DYLON /[id number] LAZARO
== END 2020-04-14 11:45 | disposition home or self-care (01) ==
LOC: MW.SDS 06:41
PROVIDERS: ATTEND Surgery
DX: C43.72 Malignant melanoma of left lower limb, including hip (principal); F32.9 Major depressive disorder, single episode, unspecified; F41.9 Anxiety disorder, unspecified; I10 Essential (primary) hypertension; Z98.890 Other specified postprocedural states; Z79.899 Other long term (current) drug therapy
CPT/HCPCS: 11606; 12035; 88305; J0131; J1170; J1885; J2001; J2250; J2405; J2704; J3010; J3490; J7120; 00400

== ENCOUNTER 2021-04-04 10:39 | Emergency (ER) | payer BC ==
--- NOTE | 2021-04-04 11:50 | EDM.PDOC ---
ED HPI GENERAL MEDICAL PROBLEM - General Chief Complaint: Respiratory Problem Stated Complaint: COUGHING Time Seen by Provider: 04/04/21 11:23 - History of Present Illness INITIAL COMMENTS - FREE TEXT/NARRATIVE: 55-year-old female presents complaining of 5 to 6 days of headache and body aches and fatigue and lethargy and cough with some shortness of breath. Her significant other has similar symptoms. She has not been vaccinated with Covid. No known Covid contacts. Patient denies chest pain. No other infectious complaints. Patient does have a history of migraine headaches. No slurred speech or double vision or arm/leg numbness/weakness. headache Pain Score (Numeric/FACES): 6 - Related Data Allergies Allergy/AdvReac Type Severity Reaction Status Date / Time No Known Allergies Allergy Verified 04/04/21 11:47 Home Meds: Home Meds Gabapentin [Neurontin] 3 tab PO TID 04/08/20 [History] Propranolol HCl 40 mg PO BID 04/08/20 [History] Triamcinolone Acetonide [Triamcinolone Acetonide 0.1% Crm] 1 applic TOP ASDIRECTED PRN 04/08/20 [History] Acetaminophen/HYDROcodone [[place] 325-5 MG] 1 tab PO Q8H PRN 3 Days #10 tablet 04/14/20 [Rx] Past Medical History - Past Health History Medical/Surgical History: Denies Medical/Surgical History HEENT History: Reports: None Other HEENT History: wears glasses, bottom partial Cardiovascular History: Reports: Hypertension Other Cardiovascular History: hx DVT to right lower leg "years ago, in the " Respiratory History: Reports: None Gastrointestinal History: Reports: None Genitourinary History: Reports: None 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: hysterectomy 20 years ago Musculoskeletal History: Reports: Fracture Other Musculoskeletal History: fracture in left arm Neurological History: Reports: Migraines Psychiatric History: Reports: Addiction, Anxiety, Depression, Panic Attack, Suicide Attempt Other Psychiatric History: denies having any addictions Endocrine/Metabolic History: Reports: None Hematologic History: Reports: None Other Hematologic History: hx transfusion after delivery Immunologic History: Reports: None Oncologic (Cancer) History: Reports: None Other Oncologic History: melanoma -left lateral leg Dermatologic History: Reports: None Other Dermatologic History: prurigo - Infectious Disease History Infectious Disease History: Reports: Chicken Pox - Past Surgical History Head Surgeries/Procedures: Reports: None HEENT Surgical History: Reports: None Cardiovascular Surgical History: Reports: Vascular Surgery Respiratory Surgical History: Reports: None GI Surgical History: Reports: Appendectomy, Cholecystectomy Other GI Surgeries/Procedures: mass removed Female Surgical History: Reports: Hysterectomy Other Female Surgeries/Procedures: hx laparoscopy Endocrine Surgical History: Reports: None Neurological Surgical History: Reports: C-Spine, Lumbar Spine Other Neurological Surgeries/Procedures: cervical fusion x2 Musculoskeletal Surgical History: Reports: Other (See Below) Other Musculoskeletal Surgeries/Procedures:: neck surgery Oncologic Surgical History: Reports: None Dermatological Surgical History: Reports: None Social & Family History - Family History Family Medical History: No Pertinent Family History Psychiatric: Reports: None - Caffeine Use Caffeine Use: Reports: Coffee ED ROS GENERAL - Review of Systems Review Of Systems: Comprehensive ROS is negative, except as noted in HPI. ED EXAM, GENERAL - Physical Exam Exam: See Below Free Text/Narrative:: CONSTITUTIONAL: well appearing in no acute distress SKIN: Warm, dry, and intact without rash HENT: Normocephalic, atraumatic, PULMONARY: clear to ausculation bilaterally. No rales, rhonchi, wheezing CARDIOVASCULAR: regular rate, No murmur, rubs, or gallops GASTROINTESTINAL: soft, nondistended, nontender NEUROLOGIC: normal speech, II-XII intact. light touch/5/5 power equal and symmetric in upper and lower extremities without deficit MUSCULOSKELETAL: no gross deformities, atraumatic PSYCHIATRIC: normal mood and affect #1 Interpretation Time: 12:04 EKG Interpretation Comments: 65, normal sinus rhythm, nonspecific ST/T findings Course - Vital Signs Text/Narrative:: Differential diagnosis: Intracranial hemorrhage, migraine headache, Covid, viral syndrome, bacterial pneumonia, PE, other She presents as outlined above symptoms consistent with viral etiology patient positive for Covid. Positive sick contacts. Patient breathing fine doubt marked hypoxia and chest x-ray is reassuring. Supportive treatment with return precautions and PCP follow-up Last Recorded V/S: Last Vital Signs Temp 36.4 C 04/04/21 11:48 Pulse 66 04/04/21 11:48 Resp 18 04/04/21 11:48 BP 127/94 H 04/04/21 11:48 Pulse Ox 94 L 04/04/21 11:48 - Orders/Labs/Meds Labs: Laboratory Tests 04/04/21 04/04/21 04/04/21 Range/Units 11:55 11:55 11:55 WBC 3.73 L (4.0-11.0) K/uL RBC 4.48 (4.30-5.90) M/uL Hgb 13.7 (12.0-16.0) g/dL Hct 40.8 (36.0-46.0) % MCV 91.1 (80.0-98.0) fL MCH 30.6 (27.0-32.0) pg MCHC 33.6 (31.0-37.0) g/dL RDW Std Deviation 44.2 (28.0-62.0) fl RDW Coeff of Sammi 13 (11.0-15.0) % Plt Count 184 (150-400) K/uL MPV 10.20 (7.40-12.00) fL Neut % (Auto) 64.9 (48.0-80.0) % Lymph % (Auto) 22.5 (16.0-40.0) % [place] % (Auto) 9.9 (0.0-15.0) % Eos % (Auto) 2.4 (0.0-7.0) % Baso % (Auto) 0.3 (0.0-1.5) % Neut # (Auto) 2.4 (1.4-5.7) K/uL Lymph # (Auto) 0.8 (0.6-2.4) K/uL [place] # (Auto) 0.4 (0.0-0.8) K/uL Eos # (Auto) 0.1 (0.0-0.7) K/uL Baso # (Auto) 0.0 (0.0-0.1) K/uL Nucleated RBC % 0.0 /100WBC Nucleated RBCs # 0 K/uL Sodium 136 (136-145) mmol/L Potassium 4.3 (3.5-5.1) mmol/L Chloride 100 (98-107) mmol/L Carbon Dioxide 30.6 (21.0-32.0) mmol/L BUN 10 (7.0-18.0) mg/dL Creatinine 0.8 (0.6-1.0) mg/dL Est Cr Clr Drug Dosing TNP Estimated GFR (MDRD) > 60.0 ml/min Glucose 91 (74-106) mg/dL Calcium 8.4 L (8.5-10.1) mg/dL Total Bilirubin 0.4 (0.2-1.0) mg/dL AST 60 H (15-37) IU/L ALT 83 H (14-63) IU/L Alkaline Phosphatase 151 H (46-116) U/L Troponin I < 0.050 (0.000-0.056) ng/mL B-Natriuretic Peptide 9 (<100) PG/ML Total Protein 7.4 (6.4-8.2) g/dL Albumin 3.5 (3.4-5.0) g/dL Globulin 3.9 (2.6-4.0) g/dL Albumin/Globulin Ratio 0.9 (0.9-1.6) Urine Color Urine Appearance Urine pH (5.0-8.0) Ur Specific [place] (1.001-1.035) Urine Protein (NEGATIVE) mg/dL Urine Glucose (UA) (NEGATIVE) mg/dL Urine Ketones (NEGATIVE) mg/dL Urine Occult Blood (NEGATIVE) Urine Nitrite (NEGATIVE) Urine Bilirubin (NEGATIVE) Urine Urobilinogen (<2.0) EU/dL Ur Leukocyte Esterase (NEGATIVE) SARS-CoV-2 RNA (ANITA) (NEGATIVE) 04/04/21 04/04/21 Range/Units 12:00 12:08 WBC (4.0-11.0) K/uL RBC (4.30-5.90) M/uL Hgb (12.0-16.0) g/dL Hct (36.0-46.0) % MCV (80.0-98.0) fL MCH (27.0-32.0) pg MCHC (31.0-37.0) g/dL RDW Std Deviation (28.0-62.0) fl RDW Coeff of Sammi (11.0-15.0) % Plt Count (150-400) K/uL MPV (7.40-12.00) fL Neut % (Auto) (48.0-80.0) % Lymph % (Auto) (16.0-40.0) % [place] % (Auto) (0.0-15.0) % Eos % (Auto) (0.0-7.0) % Baso % (Auto) (0.0-1.5) % Neut # (Auto) (1.4-5.7) K/uL Lymph # (Auto) (0.6-2.4) K/uL [place] # (Auto) (0.0-0.8) K/uL Eos # (Auto) (0.0-0.7) K/uL Baso # (Auto) (0.0-0.1) K/uL Nucleated RBC % /100WBC Nucleated RBCs # K/uL Sodium (136-145) mmol/L Potassium (3.5-5.1) mmol/L Chloride (98-107) mmol/L Carbon Dioxide (21.0-32.0) mmol/L BUN (7.0-18.0) mg/dL Creatinine (0.6-1.0) mg/dL Est Cr Clr Drug Dosing Estimated GFR (MDRD) ml/min Glucose (74-106) mg/dL Calcium (8.5-10.1) mg/dL Total Bilirubin (0.2-1.0) mg/dL AST (15-37) IU/L ALT (14-63) IU/L Alkaline Phosphatase (46-116) U/L Troponin I (0.000-0.056) ng/mL B-Natriuretic Peptide (<100) PG/ML Total Protein (6.4-8.2) g/dL Albumin (3.4-5.0) g/dL Globulin (2.6-4.0) g/dL Albumin/Globulin Ratio (0.9-1.6) Urine Color YELLOW Urine Appearance CLEAR Urine pH 6.0 (5.0-8.0) Ur Specific [place] 1.015 (1.001-1.035) Urine Protein NEGATIVE (NEGATIVE) mg/dL Urine Glucose (UA) NEGATIVE (NEGATIVE) mg/dL Urine Ketones NEGATIVE (NEGATIVE) mg/dL Urine Occult Blood NEGATIVE (NEGATIVE) Urine Nitrite NEGATIVE (NEGATIVE) Urine Bilirubin NEGATIVE (NEGATIVE) Urine Urobilinogen 0.2 (<2.0) EU/dL Ur Leukocyte Esterase NEGATIVE (NEGATIVE) SARS-CoV-2 RNA (ANITA) POSITIVE H (NEGATIVE) Departure - Departure Time of Disposition: 13:00 Disposition: Home, Self-Care 01 Condition: Good Clinical Impression: COVID-19 - Discharge Information Instructions: COVID-19 Referrals: Juan Abernathy MD [Primary Care Provider] - Forms: ED Department Discharge Additional Instructions: Return for shortness of breath, change or worsening condition or lack of improvement. The following information is given to patients seen in the emergency department who are being discharged to home. This information is to outline your options for follow-up care. We provide all patients seen in our emergency department with a follow-up referral. The need for follow-up, as well as the timing and circumstances, are variable depending upon the specifics of your emergency department visit. If you don't have a primary care physician on staff, we will provide you with a referral. We always advise you to contact your personal physician following an emergency department visit to inform them of the circumstance of the visit and for follow-up with them and/or the need for any referrals to a consulting specialist. The emergency department will also refer you to a specialist when appropriate. This referral assures that you have the opportunity for follow-up care with a specialist. All of these measure are taken in an effort to provide you with optimal care, which includes your follow-up. Primary care clinics in the area: [facility] [address] [place] [id number] [facility] [address] [place] [id number] Under all circumstances we always encourage you to contact your private physician who remains a resource for coordinating your care. When calling for follow-up care, please make the office aware that this follow-up is from your recent emergency room visit. If for any reason you are refused follow-up, please contact the [facility] Emergency Department at and asked to speak to the emergency department charge nurse. Sepsis Event Note (ED) - Focused Exam Vital Signs: Vital Signs Temp Pulse Resp BP Pulse Ox 04/04/21 11:48 36.4 C 66 18 127/94 H 94 L
[2021-04-04 12:37] LABS: BLOOD UREA NITROGEN,BUN 10 mg/dL (7.0-18.0); CARBON DIOXIDE,CO2 30.6 mmol/L (21.0-32.0); CHLORIDE,CL 100 mmol/L (98-107); GLUCOSE RANDOM 91 mg/dL (74-106); POTASSIUM,K 4.3 mmol/L (3.5-5.1); SODIUM,NA 136 mmol/L (136-145)
--- NOTE | 2021-04-04 12:41 | CR ---
INDICATION: Shortness of breath TECHNIQUE: Single view chest. FINDINGS: The lungs are clear. The heart, mediastinum and pulmonary vessels are of normal size. There is no evidence of pleural disease. IMPRESSION: Negative chest. Dictated by Julia Monteiro MD @ 04/04/2021 12:40:[address] Julia Monteiro @ Apr 04 2021 12:40PM
[2021-04-04 13:16] VITALS: BP 118/84; PULSE 76
== END 2021-04-04 13:17 | disposition home or self-care (01) ==
LOC: MW.ED 10:39
DX: U07.1 COVID-19 (principal); I10 Essential (primary) hypertension; Z79.899 Other long term (current) drug therapy
CPT/HCPCS: 36415; 71045; 71045-26; 80053; 81003; 83880; 84484; 85025; 93005; 93010; 99283; 99284-25; U0002

== ENCOUNTER 2021-04-07 17:42 | Inpatient (IN) | payer BC ==
[2021-04-07] MEDS ORDERED: Dexamethasone 10 MG/ML SDV IVPUSH ONE (17:59)
[2021-04-07] MEDS ORDERED: REMDESIVIR 200 MG in Sodium Chloride 0.9% 250 ML IV ONE (17:59)
--- NOTE | 2021-04-07 18:06 | EDM.PDOC ---
ED HPI GENERAL MEDICAL PROBLEM - General Chief Complaint: Respiratory Problem Stated Complaint: COVID Time Seen by Provider: 04/07/21 17:44 Source of Information: Reports: Patient History Limitations: Reports: No Limitations - History of Present Illness INITIAL COMMENTS - FREE TEXT/NARRATIVE: Patient is a 55-year-old female who tested positive for Covid a few days ago presents today for worsening symptoms. Pain states she has had increased shortness of breath. Has increased cough and now having chest pain with a cough. States he is too weak and tired and will run a house and take care of herself. She also reports a fever as well. Patient denies any abdominal pain nausea vomiting or other symptoms. general Pain Score (Numeric/FACES): 6 - Related Data Allergies Allergy/AdvReac Type Severity Reaction Status Date / Time No Known Allergies Allergy Verified 04/07/21 17:46 Home Meds: Home Meds Gabapentin [Neurontin] 3 tab PO TID 04/08/20 [History] Propranolol HCl 40 mg PO BID 04/08/20 [History] Triamcinolone Acetonide [Triamcinolone Acetonide 0.1% Crm] 1 applic TOP ASDIRECTED PRN 04/08/20 [History] Acetaminophen/HYDROcodone [[place] 325-5 MG] 1 tab PO Q8H PRN 3 Days #10 tablet 04/14/20 [Rx] Past Medical History - Past Health History Medical/Surgical History: Denies Medical/Surgical History HEENT History: Reports: None Other HEENT History: wears glasses, bottom partial Cardiovascular History: Reports: Hypertension Other Cardiovascular History: hx DVT to right lower leg "years ago, in the " Respiratory History: Reports: None Gastrointestinal History: Reports: None Genitourinary History: Reports: None 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 Musculoskeletal History: Reports: Fracture Other Musculoskeletal History: fracture in left arm Neurological History: Reports: Migraines Psychiatric History: Reports: Addiction, Anxiety, Depression, Panic Attack, Suicide Attempt Other Psychiatric History: denies having any addictions Endocrine/Metabolic History: Reports: None Hematologic History: Reports: None Other Hematologic History: hx transfusion after delivery Immunologic History: Reports: None Oncologic (Cancer) History: Reports: None Other Oncologic History: melanoma -left lateral leg Dermatologic History: Reports: None Other Dermatologic History: prurigo - Infectious Disease History Infectious Disease History: Reports: Chicken Pox - Past Surgical History Head Surgeries/Procedures: Reports: None HEENT Surgical History: Reports: None Cardiovascular Surgical History: Reports: Vascular Surgery Respiratory Surgical History: Reports: None GI Surgical History: Reports: Appendectomy, Cholecystectomy Other GI Surgeries/Procedures: mass removed Female Surgical History: Reports: Hysterectomy Other Female Surgeries/Procedures: hx laparoscopy Endocrine Surgical History: Reports: None Neurological Surgical History: Reports: C-Spine, Lumbar Spine Other Neurological Surgeries/Procedures: cervical fusion x2 Musculoskeletal Surgical History: Reports: Other (See Below) Other Musculoskeletal Surgeries/Procedures:: neck surgery Oncologic Surgical History: Reports: None Dermatological Surgical History: Reports: None Social & Family History - Family History Family Medical History: No Pertinent Family History Psychiatric: Reports: None - Caffeine Use Caffeine Use: Reports: Coffee ED ROS GENERAL - Review of Systems Review Of Systems: See Below Constitutional: Reports: No Symptoms HEENT: Reports: No Symptoms Respiratory: Reports: Shortness of Breath Cardiovascular: Reports: No Symptoms Endocrine: Reports: No Symptoms GI/Abdominal: Reports: No Symptoms : Reports: No Symptoms Musculoskeletal: Reports: No Symptoms Skin: Reports: No Symptoms Neurological: Reports: No Symptoms Psychiatric: Reports: No Symptoms Hematologic/Lymphatic: Reports: No Symptoms Immunologic: Reports: No Symptoms ED EXAM, GENERAL - Physical Exam Exam: See Below Exam Limited By: No Limitations General Appearance: Alert, WD/WN, No Apparent Distress Eye Exam: Bilateral Eye: EOMI, PERRL Head: Atraumatic Respiratory/Chest: No Respiratory Distress, Lungs Clear, Normal Breath Sounds, Chest Non-Tender Cardiovascular: Normal Peripheral Pulses, Regular Rate, Rhythm GI/Abdominal: Normal Bowel Sounds, Soft, Non-Tender Neurological: Alert, Oriented Course - Vital Signs Last Recorded V/S: Last Vital Signs Temp 102.3 F H 04/07/21 17:46 Pulse 86 04/07/21 17:46 Resp 20 04/07/21 17:46 BP 124/56 L 04/07/21 17:46 Pulse Ox 87 L 04/07/21 17:46 - Orders/Labs/Meds Orders: Active Orders 24 hr Category Date Time Status Patient Status [ADT] Routine ADT 04/07/21 18:38 Ordered Chest 1V Frontal [CR] Stat Exams 04/07/21 17:59 Ordered BILIRUBIN DIRECT [CHEM] DAILY Lab 04/08/21 18:00 Ordered BILIRUBIN DIRECT [CHEM] DAILY Lab 04/09/21 18:00 Ordered BILIRUBIN DIRECT [CHEM] DAILY Lab 04/10/21 18:00 Ordered BILIRUBIN DIRECT [CHEM] DAILY Lab 04/11/21 18:00 Ordered BILIRUBIN DIRECT [CHEM] DAILY Lab 04/12/21 18:00 Ordered COMPREHENSIVE METABOLIC PN,CMP [CHEM] DAILY Lab 04/08/21 18:00 Ordered COMPREHENSIVE METABOLIC PN,CMP [CHEM] DAILY Lab 04/09/21 18:00 Ordered COMPREHENSIVE METABOLIC PN,CMP [CHEM] DAILY Lab 04/10/21 18:00 Ordered COMPREHENSIVE METABOLIC PN,CMP [CHEM] DAILY Lab 04/11/21 18:00 Ordered COMPREHENSIVE METABOLIC PN,CMP [CHEM] DAILY Lab 04/12/21 18:00 Ordered LACTATE SEPSIS W/ REFLEX [CHEM] Stat Lab 04/07/21 18:10 Received Labs: Laboratory Tests 04/07/21 04/07/21 Range/Units 17:51 17:51 WBC 3.76 L (4.0-11.0) K/uL RBC 4.11 L (4.30-5.90) M/uL Hgb 12.3 (12.0-16.0) g/dL Hct 36.8 (36.0-46.0) % MCV 89.5 (80.0-98.0) fL MCH 29.9 (27.0-32.0) pg MCHC 33.4 (31.0-37.0) g/dL RDW Std Deviation 43.1 (28.0-62.0) fl RDW Coeff of Sammi 13 (11.0-15.0) % Plt Count 156 (150-400) K/uL MPV 10.30 (7.40-12.00) fL Neut % (Auto) 66.7 (48.0-80.0) % Lymph % (Auto) 25.8 (16.0-40.0) % [place] % (Auto) 6.9 (0.0-15.0) % Eos % (Auto) 0.3 (0.0-7.0) % Baso % (Auto) 0.3 (0.0-1.5) % Neut # (Auto) 2.5 (1.4-5.7) K/uL Lymph # (Auto) 1.0 (0.6-2.4) K/uL [place] # (Auto) 0.3 (0.0-0.8) K/uL Eos # (Auto) 0.0 (0.0-0.7) K/uL Baso # (Auto) 0.0 (0.0-0.1) K/uL Nucleated RBC % 0.0 /100WBC Nucleated RBCs # 0 K/uL Sodium 133 L (136-145) mmol/L Potassium 4.4 (3.5-5.1) mmol/L Chloride 97 L (98-107) mmol/L Carbon Dioxide 29.2 (21.0-32.0) mmol/L BUN 13 (7.0-18.0) mg/dL Creatinine 0.9 (0.6-1.0) mg/dL Est Cr Clr Drug Dosing 77.27 mL/min Estimated GFR (MDRD) > 60.0 ml/min Glucose 96 (74-106) mg/dL Calcium 7.7 L (8.5-10.1) mg/dL Phosphorus 2.9 (2.6-4.7) mg/dL Magnesium 1.8 (1.8-2.4) mg/dL Total Bilirubin 0.5 (0.2-1.0) mg/dL Direct Bilirubin 0.10 (0.0-0.5) mg/dL AST 56 H (15-37) IU/L ALT 64 H (14-63) IU/L Alkaline Phosphatase 174 H (46-116) U/L Troponin I < 0.050 (0.000-0.056) ng/mL Total Protein 6.7 (6.4-8.2) g/dL Albumin 2.9 L (3.4-5.0) g/dL Globulin 3.8 (2.6-4.0) g/dL Albumin/Globulin Ratio 0.8 L (0.9-1.6) Meds: Medications Discontinued Medications Generic Name Dose Route Start Last Admin Trade Name Freq PRN Reason Stop Dose Admin Acetaminophen 1,000 mg 04/07/21 18:37 Acetaminophen 500 Mg Tab PO 04/07/21 18:38 ONETIME ONE Dexamethasone 10 mg 04/07/21 17:59 Dexamethasone 10 Mg/Ml Sdv IVPUSH 04/07/21 18:00 ONETIME ONE Remdesivir 200 mg/ Sodium 250 mls @ 250 mls/hr 08/24/21 17:59 Chloride IV 04/07/21 18:00 ONETIME ONE Departure - Departure Time of Disposition: 18:38 Disposition: Admitted As Inpatient 67 Condition: Good Clinical Impression: Hypoxia, COVID - Discharge Information Forms: ED Department Discharge Sepsis Event Note (ED) - Evaluation Sepsis Screening Result: No Definite Risk - Focused Exam Vital Signs: Vital Signs Temp Pulse Resp BP Pulse Ox 04/07/21 17:46 102.3 F H 86 20 124/56 L 87 L - My Orders Last 24 Hours: My Active Orders 04/07/21 17:59 Chest 1V Frontal [CR] Stat 04/07/21 18:10 LACTATE SEPSIS W/ REFLEX [CHEM] Stat 04/07/21 18:38 Patient Status [ADT] Routine 04/08/21 18:00 BILIRUBIN DIRECT [CHEM] DAILY COMPREHENSIVE METABOLIC PN,CMP [CHEM] DAILY 04/09/21 18:00 BILIRUBIN DIRECT [CHEM] DAILY COMPREHENSIVE METABOLIC PN,CMP [CHEM] DAILY 04/10/21 18:00 BILIRUBIN DIRECT [CHEM] DAILY COMPREHENSIVE METABOLIC PN,CMP [CHEM] DAILY 04/11/21 18:00 BILIRUBIN DIRECT [CHEM] DAILY COMPREHENSIVE METABOLIC PN,CMP [CHEM] DAILY 04/12/21 18:00 BILIRUBIN DIRECT [CHEM] DAILY COMPREHENSIVE METABOLIC PN,CMP [CHEM] DAILY - Assessment/Plan Last 24 Hours: My Active Orders 04/07/21 17:59 Chest 1V Frontal [CR] Stat 04/07/21 18:10 LACTATE SEPSIS W/ REFLEX [CHEM] Stat 04/07/21 18:38 Patient Status [ADT] Routine 04/08/21 18:00 BILIRUBIN DIRECT [CHEM] DAILY COMPREHENSIVE METABOLIC PN,CMP [CHEM] DAILY 04/09/21 18:00 BILIRUBIN DIRECT [CHEM] DAILY COMPREHENSIVE METABOLIC PN,CMP [CHEM] DAILY 04/10/21 18:00 BILIRUBIN DIRECT [CHEM] DAILY COMPREHENSIVE METABOLIC PN,CMP [CHEM] DAILY 04/11/21 18:00 BILIRUBIN DIRECT [CHEM] DAILY COMPREHENSIVE METABOLIC PN,CMP [CHEM] DAILY 04/12/21 18:00 BILIRUBIN DIRECT [CHEM] DAILY COMPREHENSIVE METABOLIC PN,CMP [CHEM] DAILY Plan: Patient is a 55-year-old female presents today for worsening Covid symptoms. Patient was satting 90% on room air when EMS was given 2 L and now to 95%. Patient will have labs EKG and will be reassessed.
[2021-04-07 18:36] LABS: BLOOD UREA NITROGEN,BUN 13 mg/dL (7.0-18.0); CARBON DIOXIDE,CO2 29.2 mmol/L (21.0-32.0); CHLORIDE,CL 97 mmol/L (98-107); GLUCOSE RANDOM 96 mg/dL (74-106); POTASSIUM,K 4.4 mmol/L (3.5-5.1); SODIUM,NA 133 mmol/L (136-145)
[2021-04-07] MEDS ORDERED: Acetaminophen 500 MG Tab PO ONE (18:37)
--- NOTE | 2021-04-07 20:51 | CR ---
INDICATION: COVID positive. Hypoxia. TECHNIQUE: Chest 1 view Comparison: 04/04/2021 Findings: Cardiomediastinal silhouette is unremarkable. Patchy basilar predominant bilateral lung opacities. No pleural effusion or pneumothorax. Cervical spine hardware is again noted. Impression: Patchy basilar predominant lung opacities are new from prior exam, consistent with history of COVID infection. Dictated by Joe Rome MD @ 04/07/2021 8:50:[address] Joe Rome @ Apr 07 2021 8:50PM
--- NOTE | 2021-04-07 23:38 | PCM.HP.2 ---
H&P History of Present Illness - General Date of Service: 04/07/21 Admit Problem/Dx: Admission Diagnosis/Problem Admission Diagnosis/Problem Hypoxia - History of Present Illness Initial Comments - Free Text/Narative: 55 yo female who presents with 9 days of fever, chills, cough, and shortness of breath. Patient tested positive for COVID on 04/04/21. Patient is unvaccinated. She was was requiring 2 liters to keep sats above 90%. general Pain Score (Numeric/FACES): 0 - Related Data Allergies/Adverse Reactions: Allergies Allergy/AdvReac Type Severity Reaction Status Date / Time No Known Allergies Allergy Verified 04/07/21 17:46 Home Medications: Home Meds Omeprazole Magnesium [Prilosec Otc] 20 mg PO DAILY 04/07/21 [History] Estazolam 4 mg PO BEDTIME PRN 04/08/21 [History] Pantoprazole Sodium [Protonix] 40 mg PO DAILY 04/08/21 [History] Propranolol HCl [Inderal Xl] 80 mg PO DAILY 04/08/21 [History] SUMAtriptan [Imitrex] 100 mg PO .AT ONSET OF MIGRAIN PRN MDD 200 mg 04/08/21 [History] traZODone HCl [Trazodone HCl] 100 mg PO BEDTIME 04/08/21 [History] Past Medical History - Past Health History Medical/Surgical History: Denies Medical/Surgical History HEENT History: Reports: Impaired Vision, Other (See Below) Other HEENT History: wears glasses, bottom partial Cardiovascular History: Reports: Blood Clots/VTE/DVT, Hypertension Other Cardiovascular History: hx DVT to right lower leg "years ago, in the s" HX HTN Respiratory History: Reports: None Gastrointestinal History: Reports: None Genitourinary History: Reports: None 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 HX OF SURGICAL FUSSION OF CERVICAL SPINE Neurological History: Reports: Migraines Psychiatric History: Reports: Anxiety Other Psychiatric History: denies having any addictions Endocrine/Metabolic History: Reports: None Hematologic History: Reports: None Other Hematologic History: hx transfusion after delivery Immunologic History: Reports: None Oncologic (Cancer) History: Reports: None Other Oncologic History: melanoma -left lateral leg Dermatologic History: Reports: Other (See Below) Other Dermatologic History: PURIGO NODULARIS - Infectious Disease History Infectious Disease History: Reports: Chicken Pox - Past Surgical History Head Surgeries/Procedures: Reports: None HEENT Surgical History: Reports: None Cardiovascular Surgical History: Reports: Vascular Surgery Other Cardiovascular Surgeries/Procedures: VASCULAR SURGER TO LOWER EXTREMETIES FOR DVT Respiratory Surgical History: Reports: None GI Surgical History: Reports: Appendectomy, Cholecystectomy, Other (See Below) Other GI Surgeries/Procedures: mass removed FROM ABDOMINAL WALL BENIGN Female Surgical History: Reports: Section, Hysterectomy Endocrine Surgical History: Reports: None Neurological Surgical History: Reports: C-Spine, Lumbar Spine Other Neurological Surgeries/Procedures: cervical fusion x2 Musculoskeletal Surgical History: Reports: Other (See Below) Other Musculoskeletal Surgeries/Procedures:: neck surgery Oncologic Surgical History: Reports: None Dermatological Surgical History: Reports: None Social & Family History - Family History Family Medical History: No Pertinent Family History Cardiac: Reports: High Cholesterol, Hypertension Respiratory: Reports: COPD Musculoskeletal: Reports: Arthritis Psychiatric: Reports: None - Tobacco Use Tobacco Use Status *Q: Never Tobacco User Second Hand Smoke Exposure: No - Caffeine Use Caffeine Use: Reports: Coffee Caffeine Use Comment: DRINKS ONE TO TWO CUPS PER DAY - Recreational Drug Use Recreational Drug Use: No H&P Review of Systems - Review of Systems: Review Of Systems: Comprehensive ROS is negative, except as noted in HPI. Exam - Exam Exam: See Below - Vital Signs Vital Signs: Last Vital Signs Temp 36.8 C 04/07/21 21:00 Pulse 58 L 04/07/21 21:00 Resp 15 04/07/21 21:00 BP 96/57 L 04/07/21 21:00 Pulse Ox 96 04/07/21 21:00 Weight: 205 kg - Exam General: Alert, Oriented HEENT: Mucosa Moist & [place] Neck: Supple Lungs: Normal Respiratory Effort, Crackles Cardiovascular: Regular Rate, Regular Rhythm GI/Abdominal Exam: Normal Bowel Sounds, Soft, Non-Tender Extremities: Non-Tender, No Pedal Edema Skin: Warm, Dry, Intact Neurological: No: Focal Deficit - Patient Data Lab Results Last 24 hrs: Laboratory Results - last 24 hr 04/07/21 04/07/21 04/07/21 Range/Units 17:51 17:51 18:10 WBC 3.76 L (4.0-11.0) K/uL RBC 4.11 L (4.30-5.90) M/uL Hgb 12.3 (12.0-16.0) g/dL Hct 36.8 (36.0-46.0) % MCV 89.5 (80.0-98.0) fL MCH 29.9 (27.0-32.0) pg MCHC 33.4 (31.0-37.0) g/dL RDW Std Deviation 43.1 (28.0-62.0) fl RDW Coeff of Sammi 13 (11.0-15.0) % Plt Count 156 (150-400) K/uL MPV 10.30 (7.40-12.00) fL Neut % (Auto) 66.7 (48.0-80.0) % Lymph % (Auto) 25.8 (16.0-40.0) % [place] % (Auto) 6.9 (0.0-15.0) % Eos % (Auto) 0.3 (0.0-7.0) % Baso % (Auto) 0.3 (0.0-1.5) % Neut # (Auto) 2.5 (1.4-5.7) K/uL Lymph # (Auto) 1.0 (0.6-2.4) K/uL [place] # (Auto) 0.3 (0.0-0.8) K/uL Eos # (Auto) 0.0 (0.0-0.7) K/uL Baso # (Auto) 0.0 (0.0-0.1) K/uL Nucleated RBC % 0.0 /100WBC Nucleated RBCs # 0 K/uL Sodium 133 L (136-145) mmol/L Potassium 4.4 (3.5-5.1) mmol/L Chloride 97 L (98-107) mmol/L Carbon Dioxide 29.2 (21.0-32.0) mmol/L BUN 13 (7.0-18.0) mg/dL Creatinine 0.9 (0.6-1.0) mg/dL Est Cr Clr Drug Dosing 77.27 mL/min Estimated GFR (MDRD) > 60.0 ml/min Glucose 96 (74-106) mg/dL Lactic Acid 1.0 (0.4-2.0) mmol/L Calcium 7.7 L (8.5-10.1) mg/dL Phosphorus 2.9 (2.6-4.7) mg/dL Magnesium 1.8 (1.8-2.4) mg/dL Total Bilirubin 0.5 (0.2-1.0) mg/dL Direct Bilirubin 0.10 (0.0-0.5) mg/dL AST 56 H (15-37) IU/L ALT 64 H (14-63) IU/L Alkaline Phosphatase 174 H (46-116) U/L Troponin I < 0.050 (0.000-0.056) ng/mL Total Protein 6.7 (6.4-8.2) g/dL Albumin 2.9 L (3.4-5.0) g/dL Globulin 3.8 (2.6-4.0) g/dL Albumin/Globulin Ratio 0.8 L (0.9-1.6) Result Diagrams: 04/08/21 05:16 04/08/21 05:16 Sepsis Event Note - Evaluation Sepsis Screening Result: No Definite Risk - Focused Exam Vital Signs: Vital Signs Temp Temp Pulse Pulse Resp BP Pulse Ox 04/07/21 21:00 36.8 C 58 L 15 96/57 L 96 04/07/21 19:49 38.4 C H 68 18 110/62 93 L 04/07/21 19:17 38.4 C H 04/07/21 18:50 82 18 114/70 92 L 04/07/21 18:47 39.1 C H 04/07/21 17:46 39.1 C H 86 20 124/56 L 87 L Problem List Initiated/Reviewed/Updated: Yes Orders Last 24hrs: Active Orders 24 hr Category Date Time Status Patient Status [ADT] Routine ADT 04/07/21 18:38 Active Antiembolic Devices [RC] PER UNIT ROUTINE Care 04/07/21 23:34 Active Telemetry Monitoring [Cardiac Monitoring] [RC] . Care 04/07/21 20:00 Active DIRECTED Regular Diet [DIET] Diet 04/08/21 Breakfast Active BILIRUBIN DIRECT [CHEM] DAILY Lab 04/08/21 18:00 Ordered BILIRUBIN DIRECT [CHEM] DAILY Lab 04/09/21 18:00 Ordered BILIRUBIN DIRECT [CHEM] DAILY Lab 04/10/21 18:00 Ordered BILIRUBIN DIRECT [CHEM] DAILY Lab 04/11/21 18:00 Ordered BILIRUBIN DIRECT [CHEM] DAILY Lab 04/12/21 18:00 Ordered COMPREHENSIVE METABOLIC PN,CMP [CHEM] DAILY Lab 04/08/21 18:00 Ordered COMPREHENSIVE METABOLIC PN,CMP [CHEM] DAILY Lab 04/09/21 18:00 Ordered COMPREHENSIVE METABOLIC PN,CMP [CHEM] DAILY Lab 04/10/21 18:00 Ordered COMPREHENSIVE METABOLIC PN,CMP [CHEM] DAILY Lab 04/11/21 18:00 Ordered COMPREHENSIVE METABOLIC PN,CMP [CHEM] DAILY Lab 04/12/21 18:00 Ordered Enoxaparin [Lovenox] Med 04/07/21 23:45 Active 40 mg SUBCUT Q24H SCD [Sequential Compression Device] [OM.PC] Routine Oth 04/07/21 23:34 Ordered Medication Orders Enoxaparin Sodium (Enoxaparin 40 Mg/0.4 Ml Syringe) 40 mg SUBCUT Q24H TOM Assessment/Plan Comment:: 55 yo female admitted for acute hypoxic respiratory failure from COVID pneumonia We will treat with dexamethasone and remdesivir 2 L NC supplemental oxygen, will wean as tolerated. lovenox for dvt prophylaxis
[2021-04-07] MEDS: Enoxaparin 40 MG/0.4 ML Syringe SUBCUT SCH (23:50)
[2021-04-07] MEDS ORDERED: Ibuprofen 400 MG Tab PO PRN (23:52)
[2021-04-07] MEDS ORDERED: Ondansetron 4 MG/2 ML SDV IVPUSH PRN (23:52)
[2021-04-08 06:52] LABS: BLOOD UREA NITROGEN,BUN 14 mg/dL (7.0-18.0); CARBON DIOXIDE,CO2 30.2 mmol/L (21.0-32.0); CHLORIDE,CL 101 mmol/L (98-107); GLUCOSE RANDOM 173 mg/dL (74-106); POTASSIUM,K 4.6 mmol/L (3.5-5.1); SODIUM,NA 138 mmol/L (136-145)
[2021-04-08] MEDS: Omeprazole 20 MG Cap.CR PO SCH (09:16)
[2021-04-08] MEDS: Propranolol 20 MG Tab PO SCH ×2 (13:02→23:23)
[2021-04-08] MEDS: Acetaminophen 325 MG Tab PO PRN (13:44)
--- NOTE | 2021-04-08 15:13 | PCM.PN ---
- General Info Date of Service: 04/08/21 - Review of Systems Systems Review Comment:: reports fatigue, shortness of breath, and cough - Patient Data Vitals - Most Recent: Last Vital Signs Temp 35.8 C L 04/08/21 12:00 Pulse 42 L 04/08/21 04:00 Resp 18 04/08/21 12:00 BP 112/73 04/08/21 12:00 Pulse Ox 92 L 04/08/21 12:00 Weight - Most Recent: 92.986 kg I&O - Last 24 Hours: Intake & Output 04/08/21 04/08/21 04/08/21 06:59 14:59 22:59 Intake Total 400 Balance 400 Lab Results Last 24 Hours: Laboratory Results - last 24 hr 04/07/21 04/07/21 04/07/21 Range/Units 17:51 17:51 18:10 WBC 3.76 L (4.0-11.0) K/uL RBC 4.11 L (4.30-5.90) M/uL Hgb 12.3 (12.0-16.0) g/dL Hct 36.8 (36.0-46.0) % MCV 89.5 (80.0-98.0) fL MCH 29.9 (27.0-32.0) pg MCHC 33.4 (31.0-37.0) g/dL RDW Std Deviation 43.1 (28.0-62.0) fl RDW Coeff of Sammi 13 (11.0-15.0) % Plt Count 156 (150-400) K/uL MPV 10.30 (7.40-12.00) fL Neut % (Auto) 66.7 (48.0-80.0) % Lymph % (Auto) 25.8 (16.0-40.0) % [place] % (Auto) 6.9 (0.0-15.0) % Eos % (Auto) 0.3 (0.0-7.0) % Baso % (Auto) 0.3 (0.0-1.5) % Neut # (Auto) 2.5 (1.4-5.7) K/uL Lymph # (Auto) 1.0 (0.6-2.4) K/uL [place] # (Auto) 0.3 (0.0-0.8) K/uL Eos # (Auto) 0.0 (0.0-0.7) K/uL Baso # (Auto) 0.0 (0.0-0.1) K/uL Nucleated RBC % 0.0 /100WBC Nucleated RBCs # 0 K/uL Sodium 133 L (136-145) mmol/L Potassium 4.4 (3.5-5.1) mmol/L Chloride 97 L (98-107) mmol/L Carbon Dioxide 29.2 (21.0-32.0) mmol/L BUN 13 (7.0-18.0) mg/dL Creatinine 0.9 (0.6-1.0) mg/dL Est Cr Clr Drug Dosing 77.27 mL/min Estimated GFR (MDRD) > 60.0 ml/min Glucose 96 (74-106) mg/dL Lactic Acid 1.0 (0.4-2.0) mmol/L Calcium 7.7 L (8.5-10.1) mg/dL Phosphorus 2.9 (2.6-4.7) mg/dL Magnesium 1.8 (1.8-2.4) mg/dL Total Bilirubin 0.5 (0.2-1.0) mg/dL Direct Bilirubin 0.10 (0.0-0.5) mg/dL AST 56 H (15-37) IU/L ALT 64 H (14-63) IU/L Alkaline Phosphatase 174 H (46-116) U/L Troponin I < 0.050 (0.000-0.056) ng/mL Total Protein 6.7 (6.4-8.2) g/dL Albumin 2.9 L (3.4-5.0) g/dL Globulin 3.8 (2.6-4.0) g/dL Albumin/Globulin Ratio 0.8 L (0.9-1.6) 04/08/21 04/08/21 Range/Units 05:16 05:16 WBC 2.17 L (4.0-11.0) K/uL RBC 4.55 (4.30-5.90) M/uL Hgb 13.6 (12.0-16.0) g/dL Hct 40.6 (36.0-46.0) % MCV 89.2 (80.0-98.0) fL MCH 29.9 (27.0-32.0) pg MCHC 33.5 (31.0-37.0) g/dL RDW Std Deviation 42.8 (28.0-62.0) fl RDW Coeff of Sammi 13 (11.0-15.0) % Plt Count 161 (150-400) K/uL MPV 10.50 (7.40-12.00) fL Neut % (Auto) 70.4 (48.0-80.0) % Lymph % (Auto) 24.0 (16.0-40.0) % [place] % (Auto) 5.1 (0.0-15.0) % Eos % (Auto) 0.0 (0.0-7.0) % Baso % (Auto) 0.5 (0.0-1.5) % Neut # (Auto) 1.5 (1.4-5.7) K/uL Lymph # (Auto) 0.5 L (0.6-2.4) K/uL [place] # (Auto) 0.1 (0.0-0.8) K/uL Eos # (Auto) 0.0 (0.0-0.7) K/uL Baso # (Auto) 0.0 (0.0-0.1) K/uL Nucleated RBC % 0.0 /100WBC Nucleated RBCs # 0 K/uL Sodium 138 (136-145) mmol/L Potassium 4.6 (3.5-5.1) mmol/L Chloride 101 (98-107) mmol/L Carbon Dioxide 30.2 (21.0-32.0) mmol/L BUN 14 (7.0-18.0) mg/dL Creatinine 0.9 (0.6-1.0) mg/dL Est Cr Clr Drug Dosing 77.27 mL/min Estimated GFR (MDRD) > 60.0 ml/min Glucose 173 H (74-106) mg/dL Lactic Acid (0.4-2.0) mmol/L Calcium 8.5 (8.5-10.1) mg/dL Phosphorus (2.6-4.7) mg/dL Magnesium (1.8-2.4) mg/dL Total Bilirubin 0.4 (0.2-1.0) mg/dL Direct Bilirubin (0.0-0.5) mg/dL AST 48 H (15-37) IU/L ALT 75 H (14-63) IU/L Alkaline Phosphatase 184 H (46-116) U/L Troponin I (0.000-0.056) ng/mL Total Protein 7.5 (6.4-8.2) g/dL Albumin 3.1 L (3.4-5.0) g/dL Globulin 4.4 H (2.6-4.0) g/dL Albumin/Globulin Ratio 0.7 L (0.9-1.6) Med Orders - Current: Current Medications Acetaminophen (Acetaminophen 325 Mg Tab) 650 mg PO Q4H PRN PRN Reason: Pain (Mild 1-3)/fever Last Admin: 04/08/21 13:44 Dose: 650 mg Documented by: Dexamethasone (Dexamethasone 4 Mg Tab) 6 mg PO Q24H [facility] Enoxaparin Sodium (Enoxaparin 40 Mg/0.4 Ml Syringe) 40 mg SUBCUT Q24H [facility] Last Admin: 04/07/21 23:50 Dose: 40 mg Documented by: Guaifenesin/Codeine Phosphate (Codeine/Guaifenesin 10-100 Mg/5 Ml Syrup 5 Ml Cup) 5 ml PO Q6H PRN PRN Reason: Cough Remdesivir 100 mg/ Sodium (Chloride) 100 mls @ 100 mls/hr IV Q24H [facility] Stop: 04/11/21 18:59 Ibuprofen (Ibuprofen 400 Mg Tab) 400 mg PO Q6H PRN PRN Reason: Pain (mild 1-3) Omeprazole (Omeprazole 20 Mg Cap.Cr) 20 mg PO DAILY [facility] Last Admin: 04/08/21 09:16 Dose: 20 mg Documented by: Ondansetron HCl (Ondansetron 4 Mg/2 Ml Sdv) 4 mg IVPUSH Q4H PRN PRN Reason: Nausea Propranolol HCl (Propranolol 20 Mg Tab) 40 mg PO BID [facility] Last Admin: 04/08/21 13:02 Dose: Not Given Documented by: Discontinued Medications Acetaminophen (Acetaminophen 500 Mg Tab) 1,000 mg PO ONETIME ONE Stop: 04/07/21 18:38 Last Admin: 04/07/21 18:47 Dose: 1,000 mg Documented by: Dexamethasone (Dexamethasone 10 Mg/Ml Sdv) 10 mg IVPUSH ONETIME ONE Stop: 04/07/21 18:00 Last Admin: 04/07/21 18:47 Dose: 10 mg Documented by: Remdesivir 200 mg/ Sodium (Chloride) 250 mls @ 250 mls/hr IV ONETIME ONE Stop: 04/07/21 18:00 Last Admin: 04/07/21 18:47 Dose: 250 mls/hr Documented by: - Exam General: Alert, Oriented HEENT: Pupils Equal Neck: Supple Lungs: Clear to Auscultation, Normal Respiratory Effort Cardiovascular: Regular Rate, Regular Rhythm GI/Abdominal Exam: Normal Bowel Sounds, Soft, Non-Tender Extremities: Non-Tender, No Pedal Edema Skin: Warm, Dry, Intact Neurological: No New Focal Deficit - Patient Data Lab Results Last 24 hrs: Laboratory Results - last 24 hr 04/07/21 04/07/21 04/07/21 Range/Units 17:51 17:51 18:10 WBC 3.76 L (4.0-11.0) K/uL RBC 4.11 L (4.30-5.90) M/uL Hgb 12.3 (12.0-16.0) g/dL Hct 36.8 (36.0-46.0) % MCV 89.5 (80.0-98.0) fL MCH 29.9 (27.0-32.0) pg MCHC 33.4 (31.0-37.0) g/dL RDW Std Deviation 43.1 (28.0-62.0) fl RDW Coeff of Sammi 13 (11.0-15.0) % Plt Count 156 (150-400) K/uL MPV 10.30 (7.40-12.00) fL Neut % (Auto) 66.7 (48.0-80.0) % Lymph % (Auto) 25.8 (16.0-40.0) % [place] % (Auto) 6.9 (0.0-15.0) % Eos % (Auto) 0.3 (0.0-7.0) % Baso % (Auto) 0.3 (0.0-1.5) % Neut # (Auto) 2.5 (1.4-5.7) K/uL Lymph # (Auto) 1.0 (0.6-2.4) K/uL [place] # (Auto) 0.3 (0.0-0.8) K/uL Eos # (Auto) 0.0 (0.0-0.7) K/uL Baso # (Auto) 0.0 (0.0-0.1) K/uL Nucleated RBC % 0.0 /100WBC Nucleated RBCs # 0 K/uL Sodium 133 L (136-145) mmol/L Potassium 4.4 (3.5-5.1) mmol/L Chloride 97 L (98-107) mmol/L Carbon Dioxide 29.2 (21.0-32.0) mmol/L BUN 13 (7.0-18.0) mg/dL Creatinine 0.9 (0.6-1.0) mg/dL Est Cr Clr Drug Dosing 77.27 mL/min Estimated GFR (MDRD) > 60.0 ml/min Glucose 96 (74-106) mg/dL Lactic Acid 1.0 (0.4-2.0) mmol/L Calcium 7.7 L (8.5-10.1) mg/dL Phosphorus 2.9 (2.6-4.7) mg/dL Magnesium 1.8 (1.8-2.4) mg/dL Total Bilirubin 0.5 (0.2-1.0) mg/dL Direct Bilirubin 0.10 (0.0-0.5) mg/dL AST 56 H (15-37) IU/L ALT 64 H (14-63) IU/L Alkaline Phosphatase 174 H (46-116) U/L Troponin I < 0.050 (0.000-0.056) ng/mL Total Protein 6.7 (6.4-8.2) g/dL Albumin 2.9 L (3.4-5.0) g/dL Globulin 3.8 (2.6-4.0) g/dL Albumin/Globulin Ratio 0.8 L (0.9-1.6) 04/08/21 04/08/21 Range/Units 05:16 05:16 WBC 2.17 L (4.0-11.0) K/uL RBC 4.55 (4.30-5.90) M/uL Hgb 13.6 (12.0-16.0) g/dL Hct 40.6 (36.0-46.0) % MCV 89.2 (80.0-98.0) fL MCH 29.9 (27.0-32.0) pg MCHC 33.5 (31.0-37.0) g/dL RDW Std Deviation 42.8 (28.0-62.0) fl RDW Coeff of Sammi 13 (11.0-15.0) % Plt Count 161 (150-400) K/uL MPV 10.50 (7.40-12.00) fL Neut % (Auto) 70.4 (48.0-80.0) % Lymph % (Auto) 24.0 (16.0-40.0) % [place] % (Auto) 5.1 (0.0-15.0) % Eos % (Auto) 0.0 (0.0-7.0) % Baso % (Auto) 0.5 (0.0-1.5) % Neut # (Auto) 1.5 (1.4-5.7) K/uL Lymph # (Auto) 0.5 L (0.6-2.4) K/uL [place] # (Auto) 0.1 (0.0-0.8) K/uL Eos # (Auto) 0.0 (0.0-0.7) K/uL Baso # (Auto) 0.0 (0.0-0.1) K/uL Nucleated RBC % 0.0 /100WBC Nucleated RBCs # 0 K/uL Sodium 138 (136-145) mmol/L Potassium 4.6 (3.5-5.1) mmol/L Chloride 101 (98-107) mmol/L Carbon Dioxide 30.2 (21.0-32.0) mmol/L BUN 14 (7.0-18.0) mg/dL Creatinine 0.9 (0.6-1.0) mg/dL Est Cr Clr Drug Dosing 77.27 mL/min Estimated GFR (MDRD) > 60.0 ml/min Glucose 173 H (74-106) mg/dL Lactic Acid (0.4-2.0) mmol/L Calcium 8.5 (8.5-10.1) mg/dL Phosphorus (2.6-4.7) mg/dL Magnesium (1.8-2.4) mg/dL Total Bilirubin 0.4 (0.2-1.0) mg/dL Direct Bilirubin (0.0-0.5) mg/dL AST 48 H (15-37) IU/L ALT 75 H (14-63) IU/L Alkaline Phosphatase 184 H (46-116) U/L Troponin I (0.000-0.056) ng/mL Total Protein 7.5 (6.4-8.2) g/dL Albumin 3.1 L (3.4-5.0) g/dL Globulin 4.4 H (2.6-4.0) g/dL Albumin/Globulin Ratio 0.7 L (0.9-1.6) Result Diagrams: 04/08/21 05:16 04/08/21 05:16 Sepsis Event Note - Evaluation Sepsis Screening Result: No Definite Risk - Focused Exam Vital Signs: Vital Signs Temp Pulse Resp BP Pulse Ox 04/08/21 12:00 35.8 C L 18 112/73 92 L 04/08/21 08:00 36.1 C 16 108/67 97 04/08/21 04:00 36.7 C 42 L 15 99/56 L 100 - Problem List Review Problem List Initiated/Reviewed/Updated: Yes - My Orders Last 24 Hours: My Active Orders 04/07/21 20:00 Telemetry Monitoring [Cardiac Monitoring] [RC] Q8H 04/07/21 23:34 Antiembolic Devices [RC] PER UNIT ROUTINE SCD [Sequential Compression Device] [OM.PC] Routine 04/07/21 23:45 Enoxaparin [Lovenox] 40 mg SUBCUT Q24H 04/07/21 23:52 Oxygen Therapy [RC] PRN Up ad Hannah [RC] ASDIRECTED VTE/DVT Education [RC] PER UNIT ROUTINE Vital Signs [RC] Q4H Acetaminophen [TylenoL] 650 mg PO Q4H PRN Ibuprofen [Motrin] 400 mg PO Q6H PRN Ondansetron [Zofran] 4 mg IVPUSH Q4H PRN Resuscitation Status Routine 04/07/21 23:54 Codeine/guaiFENesin [Robitussin AC] 5 ml PO Q6H PRN 04/08/21 Breakfast Regular Diet [DIET] 04/08/21 09:00 Omeprazole 20 mg PO DAILY Propranolol [Inderal] 40 mg PO BID 04/08/21 18:00 Remdesivir 100 mg Sodium Chloride 0.9% [Normal Saline] 100 ml IV Q24H dexAMETHasone 6 mg PO Q24H 04/09/21 05:11 CBC WITH AUTO DIFF [HEME] AM COMPREHENSIVE METABOLIC PN,CMP [CHEM] AM 04/10/21 05:11 CBC WITH AUTO DIFF [HEME] AM COMPREHENSIVE METABOLIC PN,CMP [CHEM] AM 04/11/21 05:11 CBC WITH AUTO DIFF [HEME] AM COMPREHENSIVE METABOLIC PN,CMP [CHEM] AM 04/12/21 05:11 CBC WITH AUTO DIFF [HEME] AM COMPREHENSIVE METABOLIC PN,CMP [CHEM] AM - Plan Plan:: 55 yo female admitted for acute hypoxic respiratory failure from COVID pneumonia We continue dexamethasone and remdesivir 2 L NC supplemental oxygen, will wean as tolerated. lovenox for dvt prophylaxis
[2021-04-08] MEDS: SUMAtriptan 50 MG Tab PO PRN (16:54)
[2021-04-08] MEDS: REMDESIVIR 100 MG in Sodium Chloride 0.9% 100 ML IV SCH (18:23)
[2021-04-08] MEDS: Dexamethasone 4 MG Tab PO SCH (18:36)
[2021-04-09] MEDS: Enoxaparin 40 MG/0.4 ML Syringe SUBCUT SCH ×2 (00:29→23:03)
[2021-04-09] MEDS: Codeine/guaiFENesin 10-100 MG/5 ML Syrup 5 ML Cup PO PRN ×3 (03:45→23:01)
[2021-04-09 07:05] LABS: BLOOD UREA NITROGEN,BUN 15 mg/dL (7.0-18.0); CARBON DIOXIDE,CO2 31.4 mmol/L (21.0-32.0); CHLORIDE,CL 101 mmol/L (98-107); GLUCOSE RANDOM 130 mg/dL (74-106); POTASSIUM,K 4.5 mmol/L (3.5-5.1); SODIUM,NA 140 mmol/L (136-145)
--- NOTE | 2021-04-09 08:14 | PCM.PN ---
- General Info Date of Service: 04/09/21 - Review of Systems Systems Review Comment:: feeling weak, short of breath - Patient Data Vitals - Most Recent: Last Vital Signs Temp 36.3 C 04/09/21 03:44 Pulse 58 L 04/09/21 03:44 Resp 18 04/09/21 03:44 BP 107/64 04/09/21 03:44 Pulse Ox 93 L 04/09/21 03:49 Weight - Most Recent: 92.986 kg I&O - Last 24 Hours: Intake & Output 04/08/21 04/09/21 04/09/21 22:59 06:59 14:59 Intake Total 720 600 Balance 720 600 Lab Results Last 24 Hours: Laboratory Results - last 24 hr 04/09/21 04/09/21 Range/Units 06:05 06:05 WBC 6.37 (4.0-11.0) K/uL RBC 4.48 (4.30-5.90) M/uL Hgb 13.3 (12.0-16.0) g/dL Hct 39.9 (36.0-46.0) % MCV 89.1 (80.0-98.0) fL MCH 29.7 (27.0-32.0) pg MCHC 33.3 (31.0-37.0) g/dL RDW Std Deviation 41.3 (28.0-62.0) fl RDW Coeff of Sammi 13 (11.0-15.0) % Plt Count 197 (150-400) K/uL MPV 10.60 (7.40-12.00) fL Neut % (Auto) 83.3 H (48.0-80.0) % Lymph % (Auto) 10.5 L (16.0-40.0) % [place] % (Auto) 6.0 (0.0-15.0) % Eos % (Auto) 0.0 (0.0-7.0) % Baso % (Auto) 0.2 (0.0-1.5) % Neut # (Auto) 5.3 (1.4-5.7) K/uL Lymph # (Auto) 0.7 (0.6-2.4) K/uL [place] # (Auto) 0.4 (0.0-0.8) K/uL Eos # (Auto) 0.0 (0.0-0.7) K/uL Baso # (Auto) 0.0 (0.0-0.1) K/uL Nucleated RBC % 0.0 /100WBC Nucleated RBCs # 0 K/uL Sodium 140 (136-145) mmol/L Potassium 4.5 (3.5-5.1) mmol/L Chloride 101 (98-107) mmol/L Carbon Dioxide 31.4 (21.0-32.0) mmol/L BUN 15 (7.0-18.0) mg/dL Creatinine 0.8 (0.6-1.0) mg/dL Est Cr Clr Drug Dosing 86.93 mL/min Estimated GFR (MDRD) > 60.0 ml/min Glucose 130 H (74-106) mg/dL Calcium 8.7 (8.5-10.1) mg/dL Total Bilirubin 0.3 (0.2-1.0) mg/dL AST 41 H (15-37) IU/L ALT 69 H (14-63) IU/L Alkaline Phosphatase 162 H (46-116) U/L Total Protein 7.3 (6.4-8.2) g/dL Albumin 3.1 L (3.4-5.0) g/dL Globulin 4.2 H (2.6-4.0) g/dL Albumin/Globulin Ratio 0.7 L (0.9-1.6) Med Orders - Current: Current Medications Acetaminophen (Acetaminophen 325 Mg Tab) 650 mg PO Q4H PRN PRN Reason: Pain (Mild 1-3)/fever Last Admin: 04/08/21 13:44 Dose: 650 mg Documented by: Dexamethasone (Dexamethasone 4 Mg Tab) 6 mg PO Q24H [facility] Last Admin: 04/08/21 18:36 Dose: 6 mg Documented by: Enoxaparin Sodium (Enoxaparin 40 Mg/0.4 Ml Syringe) 40 mg SUBCUT Q24H [facility] Last Admin: 04/09/21 00:29 Dose: 40 mg Documented by: Guaifenesin/Codeine Phosphate (Codeine/Guaifenesin 10-100 Mg/5 Ml Syrup 5 Ml Cup) 5 ml PO Q6H PRN PRN Reason: Cough Last Admin: 04/09/21 03:45 Dose: 5 ml Documented by: Remdesivir 100 mg/ Sodium (Chloride) 100 mls @ 100 mls/hr IV Q24H [facility] Stop: 04/11/21 18:59 Last Admin: 04/08/21 18:23 Dose: 100 mls/hr Documented by: Ibuprofen (Ibuprofen 400 Mg Tab) 400 mg PO Q6H PRN PRN Reason: Pain (mild 1-3) Omeprazole (Omeprazole 20 Mg Cap.Cr) 20 mg PO DAILY [facility] Last Admin: 04/08/21 09:16 Dose: 20 mg Documented by: Ondansetron HCl (Ondansetron 4 Mg/2 Ml Sdv) 4 mg IVPUSH Q4H PRN PRN Reason: Nausea Propranolol HCl (Propranolol 20 Mg Tab) 40 mg PO BID [facility] Last Admin: 04/08/21 23:23 Dose: Not Given Documented by: Sumatriptan Succinate (Sumatriptan 50 Mg Tab) 100 mg PO .AT ONSET OF MIGRAIN PRN PRN Reason: migraine Last Admin: 04/08/21 16:54 Dose: 100 mg Documented by: Discontinued Medications Acetaminophen (Acetaminophen 500 Mg Tab) 1,000 mg PO ONETIME ONE Stop: 04/07/21 18:38 Last Admin: 04/07/21 18:47 Dose: 1,000 mg Documented by: Dexamethasone (Dexamethasone 10 Mg/Ml Sdv) 10 mg IVPUSH ONETIME ONE Stop: 04/07/21 18:00 Last Admin: 04/07/21 18:47 Dose: 10 mg Documented by: Remdesivir 200 mg/ Sodium (Chloride) 250 mls @ 250 mls/hr IV ONETIME ONE Stop: 04/07/21 18:00 Last Admin: 04/07/21 18:47 Dose: 250 mls/hr Documented by: - Exam General: Alert, Oriented Neck: Supple Lungs: Clear to Auscultation, Normal Respiratory Effort Cardiovascular: Regular Rate, Regular Rhythm GI/Abdominal Exam: Normal Bowel Sounds, Soft, Non-Tender Extremities: Non-Tender, No Pedal Edema Skin: Warm, Dry, Intact Neurological: No New Focal Deficit - Patient Data Lab Results Last 24 hrs: Laboratory Results - last 24 hr 04/09/21 04/09/21 Range/Units 06:05 06:05 WBC 6.37 (4.0-11.0) K/uL RBC 4.48 (4.30-5.90) M/uL Hgb 13.3 (12.0-16.0) g/dL Hct 39.9 (36.0-46.0) % MCV 89.1 (80.0-98.0) fL MCH 29.7 (27.0-32.0) pg MCHC 33.3 (31.0-37.0) g/dL RDW Std Deviation 41.3 (28.0-62.0) fl RDW Coeff of Sammi 13 (11.0-15.0) % Plt Count 197 (150-400) K/uL MPV 10.60 (7.40-12.00) fL Neut % (Auto) 83.3 H (48.0-80.0) % Lymph % (Auto) 10.5 L (16.0-40.0) % [place] % (Auto) 6.0 (0.0-15.0) % Eos % (Auto) 0.0 (0.0-7.0) % Baso % (Auto) 0.2 (0.0-1.5) % Neut # (Auto) 5.3 (1.4-5.7) K/uL Lymph # (Auto) 0.7 (0.6-2.4) K/uL [place] # (Auto) 0.4 (0.0-0.8) K/uL Eos # (Auto) 0.0 (0.0-0.7) K/uL Baso # (Auto) 0.0 (0.0-0.1) K/uL Nucleated RBC % 0.0 /100WBC Nucleated RBCs # 0 K/uL Sodium 140 (136-145) mmol/L Potassium 4.5 (3.5-5.1) mmol/L Chloride 101 (98-107) mmol/L Carbon Dioxide 31.4 (21.0-32.0) mmol/L BUN 15 (7.0-18.0) mg/dL Creatinine 0.8 (0.6-1.0) mg/dL Est Cr Clr Drug Dosing 86.93 mL/min Estimated GFR (MDRD) > 60.0 ml/min Glucose 130 H (74-106) mg/dL Calcium 8.7 (8.5-10.1) mg/dL Total Bilirubin 0.3 (0.2-1.0) mg/dL AST 41 H (15-37) IU/L ALT 69 H (14-63) IU/L Alkaline Phosphatase 162 H (46-116) U/L Total Protein 7.3 (6.4-8.2) g/dL Albumin 3.1 L (3.4-5.0) g/dL Globulin 4.2 H (2.6-4.0) g/dL Albumin/Globulin Ratio 0.7 L (0.9-1.6) Result Diagrams: 04/09/21 06:05 04/09/21 06:05 Sepsis Event Note - Evaluation Sepsis Screening Result: No Definite Risk - Focused Exam Vital Signs: Vital Signs Temp Pulse Resp BP Pulse Ox 04/09/21 03:49 93 L 04/09/21 03:44 36.3 C 58 L 18 107/64 89 L 04/09/21 00:27 37.0 C 58 L 16 104/55 L 92 L 04/08/21 21:57 55 L 114/71 - Problem List Review Problem List Initiated/Reviewed/Updated: Yes - My Orders Last 24 Hours: My Active Orders 04/08/21 09:00 Omeprazole 20 mg PO DAILY Propranolol [Inderal] 40 mg PO BID 04/08/21 16:11 SUMAtriptan [Imitrex] 100 mg PO .AT ONSET OF MIGRAIN PRN 04/08/21 18:00 Remdesivir 100 mg Sodium Chloride 0.9% [Normal Saline] 100 ml IV Q24H dexAMETHasone 6 mg PO Q24H 04/10/21 05:11 CBC WITH AUTO DIFF [HEME] AM COMPREHENSIVE METABOLIC PN,CMP [CHEM] AM 04/11/21 05:11 CBC WITH AUTO DIFF [HEME] AM COMPREHENSIVE METABOLIC PN,CMP [CHEM] AM 04/12/21 05:11 CBC WITH AUTO DIFF [HEME] AM COMPREHENSIVE METABOLIC PN,CMP [CHEM] AM - Plan Plan:: 55 yo female admitted for acute hypoxic respiratory failure from COVID pneumonia We continue dexamethasone and remdesivir 2 L NC supplemental oxygen, will wean as tolerated. lovenox for dvt prophylaxis
[2021-04-09] MEDS: Omeprazole 20 MG Cap.CR PO SCH (09:44)
[2021-04-09] MEDS: Propranolol 20 MG Tab PO SCH ×2 (09:45→23:04)
[2021-04-09] MEDS: SUMAtriptan 50 MG Tab PO PRN (13:35)
[2021-04-09] MEDS: REMDESIVIR 100 MG in Sodium Chloride 0.9% 100 ML IV SCH (17:24)
[2021-04-09] MEDS: Dexamethasone 4 MG Tab PO SCH (17:25)
[2021-04-10 07:27] LABS: BLOOD UREA NITROGEN,BUN 15 mg/dL (7.0-18.0); CARBON DIOXIDE,CO2 32.3 mmol/L (21.0-32.0); CHLORIDE,CL 102 mmol/L (98-107); GLUCOSE RANDOM 129 mg/dL (74-106); POTASSIUM,K 4.1 mmol/L (3.5-5.1); SODIUM,NA 140 mmol/L (136-145)
[2021-04-10] MEDS: SUMAtriptan 50 MG Tab PO PRN (09:43)
[2021-04-10] MEDS: Omeprazole 20 MG Cap.CR PO SCH (09:43)
[2021-04-10] MEDS: Propranolol 20 MG Tab PO SCH ×2 (09:45→23:40)
--- NOTE | 2021-04-10 14:51 | PCM.PN ---
- General Info Date of Service: 04/10/21 - Review of Systems Systems Review Comment:: feeling a little bit better - Patient Data Vitals - Most Recent: Last Vital Signs Temp 36.1 C 04/10/21 09:36 Pulse 48 L 04/10/21 09:36 Resp 18 04/10/21 09:36 BP 111/65 04/10/21 09:36 Pulse Ox 92 L 04/10/21 10:00 Weight - Most Recent: 92.986 kg I&O - Last 24 Hours: Intake & Output 04/09/21 04/10/21 04/10/21 22:59 06:59 14:59 Intake Total 450 1300 Balance 450 1300 Lab Results Last 24 Hours: Laboratory Results - last 24 hr 04/10/21 04/10/21 Range/Units 06:00 06:00 WBC 5.25 (4.0-11.0) K/uL RBC 4.21 L (4.30-5.90) M/uL Hgb 12.7 (12.0-16.0) g/dL Hct 37.6 (36.0-46.0) % MCV 89.3 (80.0-98.0) fL MCH 30.2 (27.0-32.0) pg MCHC 33.8 (31.0-37.0) g/dL RDW Std Deviation 41.1 (28.0-62.0) fl RDW Coeff of Sammi 13 (11.0-15.0) % Plt Count 226 (150-400) K/uL MPV 10.60 (7.40-12.00) fL Neut % (Auto) 82.3 H (48.0-80.0) % Lymph % (Auto) 11.6 L (16.0-40.0) % [place] % (Auto) 5.9 (0.0-15.0) % Eos % (Auto) 0.0 (0.0-7.0) % Baso % (Auto) 0.2 (0.0-1.5) % Neut # (Auto) 4.3 (1.4-5.7) K/uL Lymph # (Auto) 0.6 (0.6-2.4) K/uL [place] # (Auto) 0.3 (0.0-0.8) K/uL Eos # (Auto) 0.0 (0.0-0.7) K/uL Baso # (Auto) 0.0 (0.0-0.1) K/uL Nucleated RBC % 0.0 /100WBC Nucleated RBCs # 0 K/uL Sodium 140 (136-145) mmol/L Potassium 4.1 (3.5-5.1) mmol/L Chloride 102 (98-107) mmol/L Carbon Dioxide 32.3 H (21.0-32.0) mmol/L BUN 15 (7.0-18.0) mg/dL Creatinine 0.8 (0.6-1.0) mg/dL Est Cr Clr Drug Dosing 86.93 mL/min Estimated GFR (MDRD) > 60.0 ml/min Glucose 129 H (74-106) mg/dL Calcium 8.4 L (8.5-10.1) mg/dL Total Bilirubin 0.4 (0.2-1.0) mg/dL AST 72 H (15-37) IU/L ALT 108 H (14-63) IU/L Alkaline Phosphatase 140 H (46-116) U/L Total Protein 6.6 (6.4-8.2) g/dL Albumin 2.8 L (3.4-5.0) g/dL Globulin 3.8 (2.6-4.0) g/dL Albumin/Globulin Ratio 0.7 L (0.9-1.6) Med Orders - Current: Current Medications Acetaminophen (Acetaminophen 325 Mg Tab) 650 mg PO Q4H PRN PRN Reason: Pain (Mild 1-3)/fever Last Admin: 04/08/21 13:44 Dose: 650 mg Documented by: Dexamethasone (Dexamethasone 4 Mg Tab) 6 mg PO Q24H [facility] Last Admin: 04/09/21 17:25 Dose: 6 mg Documented by: Enoxaparin Sodium (Enoxaparin 40 Mg/0.4 Ml Syringe) 40 mg SUBCUT Q24H [facility] Last Admin: 04/09/21 23:03 Dose: 40 mg Documented by: Guaifenesin/Codeine Phosphate (Codeine/Guaifenesin 10-100 Mg/5 Ml Syrup 5 Ml Cup) 5 ml PO Q6H PRN PRN Reason: Cough Last Admin: 04/09/21 23:01 Dose: 5 ml Documented by: Remdesivir 100 mg/ Sodium (Chloride) 100 mls @ 100 mls/hr IV Q24H [facility] Stop: 04/11/21 18:59 Last Admin: 04/09/21 17:24 Dose: 100 mls/hr Documented by: Ibuprofen (Ibuprofen 400 Mg Tab) 400 mg PO Q6H PRN PRN Reason: Pain (mild 1-3) Omeprazole (Omeprazole 20 Mg Cap.Cr) 20 mg PO DAILY [facility] Last Admin: 04/10/21 09:43 Dose: 20 mg Documented by: Ondansetron HCl (Ondansetron 4 Mg/2 Ml Sdv) 4 mg IVPUSH Q4H PRN PRN Reason: Nausea Last Admin: 04/09/21 09:43 Dose: 4 mg Documented by: Propranolol HCl (Propranolol 20 Mg Tab) 40 mg PO BID [facility] Last Admin: 04/10/21 09:45 Dose: Not Given Documented by: Sumatriptan Succinate (Sumatriptan 50 Mg Tab) 100 mg PO .AT ONSET OF MIGRAIN PRN PRN Reason: migraine Last Admin: 04/10/21 09:43 Dose: 100 mg Documented by: Discontinued Medications Acetaminophen (Acetaminophen 500 Mg Tab) 1,000 mg PO ONETIME ONE Stop: 04/07/21 18:38 Last Admin: 04/07/21 18:47 Dose: 1,000 mg Documented by: Dexamethasone (Dexamethasone 10 Mg/Ml Sdv) 10 mg IVPUSH ONETIME ONE Stop: 04/07/21 18:00 Last Admin: 04/07/21 18:47 Dose: 10 mg Documented by: Remdesivir 200 mg/ Sodium (Chloride) 250 mls @ 250 mls/hr IV ONETIME ONE Stop: 04/07/21 18:00 Last Admin: 04/07/21 18:47 Dose: 250 mls/hr Documented by: - Exam General: Alert, Oriented Neck: Supple Lungs: Clear to Auscultation, Normal Respiratory Effort Cardiovascular: Regular Rate, Regular Rhythm GI/Abdominal Exam: Normal Bowel Sounds, Soft, Non-Tender Extremities: Non-Tender, No Pedal Edema Skin: Warm, Dry, Intact Neurological: No New Focal Deficit - Patient Data Lab Results Last 24 hrs: Laboratory Results - last 24 hr 04/10/21 04/10/21 Range/Units 06:00 06:00 WBC 5.25 (4.0-11.0) K/uL RBC 4.21 L (4.30-5.90) M/uL Hgb 12.7 (12.0-16.0) g/dL Hct 37.6 (36.0-46.0) % MCV 89.3 (80.0-98.0) fL MCH 30.2 (27.0-32.0) pg MCHC 33.8 (31.0-37.0) g/dL RDW Std Deviation 41.1 (28.0-62.0) fl RDW Coeff of Sammi 13 (11.0-15.0) % Plt Count 226 (150-400) K/uL MPV 10.60 (7.40-12.00) fL Neut % (Auto) 82.3 H (48.0-80.0) % Lymph % (Auto) 11.6 L (16.0-40.0) % [place] % (Auto) 5.9 (0.0-15.0) % Eos % (Auto) 0.0 (0.0-7.0) % Baso % (Auto) 0.2 (0.0-1.5) % Neut # (Auto) 4.3 (1.4-5.7) K/uL Lymph # (Auto) 0.6 (0.6-2.4) K/uL [place] # (Auto) 0.3 (0.0-0.8) K/uL Eos # (Auto) 0.0 (0.0-0.7) K/uL Baso # (Auto) 0.0 (0.0-0.1) K/uL Nucleated RBC % 0.0 /100WBC Nucleated RBCs # 0 K/uL Sodium 140 (136-145) mmol/L Potassium 4.1 (3.5-5.1) mmol/L Chloride 102 (98-107) mmol/L Carbon Dioxide 32.3 H (21.0-32.0) mmol/L BUN 15 (7.0-18.0) mg/dL Creatinine 0.8 (0.6-1.0) mg/dL Est Cr Clr Drug Dosing 86.93 mL/min Estimated GFR (MDRD) > 60.0 ml/min Glucose 129 H (74-106) mg/dL Calcium 8.4 L (8.5-10.1) mg/dL Total Bilirubin 0.4 (0.2-1.0) mg/dL AST 72 H (15-37) IU/L ALT 108 H (14-63) IU/L Alkaline Phosphatase 140 H (46-116) U/L Total Protein 6.6 (6.4-8.2) g/dL Albumin 2.8 L (3.4-5.0) g/dL Globulin 3.8 (2.6-4.0) g/dL Albumin/Globulin Ratio 0.7 L (0.9-1.6) Result Diagrams: 04/10/21 06:00 04/10/21 06:00 Sepsis Event Note - Evaluation Sepsis Screening Result: No Definite Risk - Focused Exam Vital Signs: Vital Signs Temp Pulse Resp BP Pulse Ox Pulse Ox 04/10/21 10:00 92 L 04/10/21 09:36 36.1 C 48 L 18 111/65 91 L 04/10/21 03:43 36.7 C 50 L 18 102/61 92 L - Problem List Review Problem List Initiated/Reviewed/Updated: Yes - My Orders Last 24 Hours: My Active Orders 04/09/21 21:00 Communication Order [RC] QSHIFT 04/10/21 13:33 Communication Order [RC] PER UNIT ROUTINE 04/11/21 05:11 CBC WITH AUTO DIFF [HEME] AM COMPREHENSIVE METABOLIC PN,CMP [CHEM] AM 04/12/21 05:11 CBC WITH AUTO DIFF [HEME] AM COMPREHENSIVE METABOLIC PN,CMP [CHEM] AM - Plan Plan:: 55 yo female admitted for acute hypoxic respiratory failure from COVID pneumonia We continue dexamethasone and remdesivir 2 L NC supplemental oxygen, will wean as tolerated. lovenox for dvt prophylaxis
[2021-04-10] MEDS: REMDESIVIR 100 MG in Sodium Chloride 0.9% 100 ML IV SCH (17:30)
[2021-04-10] MEDS: Dexamethasone 4 MG Tab PO SCH (17:34)
[2021-04-10] MEDS: Codeine/guaiFENesin 10-100 MG/5 ML Syrup 5 ML Cup PO PRN (19:33)
[2021-04-10] MEDS: Enoxaparin 40 MG/0.4 ML Syringe SUBCUT SCH (23:42)
[2021-04-11] MEDS: Codeine/guaiFENesin 10-100 MG/5 ML Syrup 5 ML Cup PO PRN ×2 (05:50→18:49)
[2021-04-11 06:54] LABS: BLOOD UREA NITROGEN,BUN 15 mg/dL (7.0-18.0); CARBON DIOXIDE,CO2 31.6 mmol/L (21.0-32.0); CHLORIDE,CL 101 mmol/L (98-107); GLUCOSE RANDOM 141 mg/dL (74-106); POTASSIUM,K 4.1 mmol/L (3.5-5.1); SODIUM,NA 138 mmol/L (136-145)
[2021-04-11] MEDS: Omeprazole 20 MG Cap.CR PO SCH (08:34)
[2021-04-11] MEDS: Propranolol 20 MG Tab PO SCH ×2 (08:36→21:11)
--- NOTE | 2021-04-11 15:31 | PCM.PN ---
- General Info Date of Service: 04/11/21 - Review of Systems Systems Review Comment:: feeling better - Patient Data Vitals - Most Recent: Last Vital Signs Temp 36.2 C 04/11/21 13:00 Pulse 59 L 04/11/21 13:00 Resp 18 04/11/21 13:00 BP 120/74 04/11/21 13:00 Pulse Ox 91 L 04/11/21 13:00 Weight - Most Recent: 92.986 kg I&O - Last 24 Hours: Intake & Output 04/11/21 04/11/21 04/11/21 06:59 14:59 22:59 Intake Total 550 Balance 550 Lab Results Last 24 Hours: Laboratory Results - last 24 hr 04/11/21 04/11/21 Range/Units 05:17 05:17 WBC 4.96 (4.0-11.0) K/uL RBC 4.31 (4.30-5.90) M/uL Hgb 12.3 (12.0-16.0) g/dL Hct 38.2 (36.0-46.0) % MCV 88.6 (80.0-98.0) fL MCH 28.5 (27.0-32.0) pg MCHC 32.2 (31.0-37.0) g/dL RDW Std Deviation 40.4 (28.0-62.0) fl RDW Coeff of Sammi 13 (11.0-15.0) % Plt Count 243 (150-400) K/uL MPV 10.80 (7.40-12.00) fL Add Manual Diff YES Neutrophils % (Manual) 75 (48.0-80.0) % Lymphocytes % (Manual) 19 (16.0-40.0) % Monocytes % (Manual) 6 (0.0-15.0) % Nucleated RBC % 0.0 /100WBC Absolute Seg Neuts 3.7 (1.4-5.7) Lymphocytes # (Manual) 0.9 (0.6-2.4) Monocytes # (Manual) 0.3 (0.0-0.8) Nucleated RBCs # 0 K/uL Sodium 138 (136-145) mmol/L Potassium 4.1 (3.5-5.1) mmol/L Chloride 101 (98-107) mmol/L Carbon Dioxide 31.6 (21.0-32.0) mmol/L BUN 15 (7.0-18.0) mg/dL Creatinine 0.7 (0.6-1.0) mg/dL Est Cr Clr Drug Dosing 99.35 mL/min Estimated GFR (MDRD) > 60.0 ml/min Glucose 141 H (74-106) mg/dL Calcium 8.4 L (8.5-10.1) mg/dL Total Bilirubin 0.3 (0.2-1.0) mg/dL AST 99 H (15-37) IU/L ALT 196 H (14-63) IU/L Alkaline Phosphatase 141 H (46-116) U/L Total Protein 6.6 (6.4-8.2) g/dL Albumin 2.8 L (3.4-5.0) g/dL Globulin 3.8 (2.6-4.0) g/dL Albumin/Globulin Ratio 0.7 L (0.9-1.6) Med Orders - Current: Current Medications Acetaminophen (Acetaminophen 325 Mg Tab) 650 mg PO Q4H PRN PRN Reason: Pain (Mild 1-3)/fever Last Admin: 04/08/21 13:44 Dose: 650 mg Documented by: Dexamethasone (Dexamethasone 4 Mg Tab) 6 mg PO Q24H [facility] Last Admin: 04/10/21 17:34 Dose: 6 mg Documented by: Enoxaparin Sodium (Enoxaparin 40 Mg/0.4 Ml Syringe) 40 mg SUBCUT Q24H [facility] Last Admin: 04/10/21 23:42 Dose: 40 mg Documented by: Guaifenesin/Codeine Phosphate (Codeine/Guaifenesin 10-100 Mg/5 Ml Syrup 5 Ml Cup) 5 ml PO Q6H PRN PRN Reason: Cough Last Admin: 04/11/21 05:50 Dose: 5 ml Documented by: Remdesivir 100 mg/ Sodium (Chloride) 100 mls @ 100 mls/hr IV Q24H [facility] Stop: 04/11/21 18:59 Last Admin: 04/10/21 17:30 Dose: 100 mls/hr Documented by: Ibuprofen (Ibuprofen 400 Mg Tab) 400 mg PO Q6H PRN PRN Reason: Pain (mild 1-3) Omeprazole (Omeprazole 20 Mg Cap.Cr) 20 mg PO ACBREAKFAST [facility] Ondansetron HCl (Ondansetron 4 Mg/2 Ml Sdv) 4 mg IVPUSH Q4H PRN PRN Reason: Nausea Last Admin: 04/09/21 09:43 Dose: 4 mg Documented by: Propranolol HCl (Propranolol 20 Mg Tab) 40 mg PO BID [facility] Last Admin: 04/11/21 08:36 Dose: Not Given Documented by: Sumatriptan Succinate (Sumatriptan 50 Mg Tab) 100 mg PO .AT ONSET OF MIGRAIN PRN PRN Reason: migraine Last Admin: 04/10/21 09:43 Dose: 100 mg Documented by: Discontinued Medications Acetaminophen (Acetaminophen 500 Mg Tab) 1,000 mg PO ONETIME ONE Stop: 04/07/21 18:38 Last Admin: 04/07/21 18:47 Dose: 1,000 mg Documented by: Dexamethasone (Dexamethasone 10 Mg/Ml Sdv) 10 mg IVPUSH ONETIME ONE Stop: 04/07/21 18:00 Last Admin: 04/07/21 18:47 Dose: 10 mg Documented by: Remdesivir 200 mg/ Sodium (Chloride) 250 mls @ 250 mls/hr IV ONETIME ONE Stop: 04/07/21 18:00 Last Admin: 04/07/21 18:47 Dose: 250 mls/hr Documented by: Omeprazole (Omeprazole 20 Mg Cap.Cr) 20 mg PO DAILY [facility] Last Admin: 04/11/21 08:34 Dose: 20 mg Documented by: - Exam General: Alert, Oriented Neck: Supple Lungs: Clear to Auscultation, Normal Respiratory Effort Cardiovascular: Regular Rate, Regular Rhythm GI/Abdominal Exam: Normal Bowel Sounds, Soft, Non-Tender Extremities: Non-Tender, No Pedal Edema Skin: Warm, Dry, Intact Neurological: No New Focal Deficit - Patient Data Lab Results Last 24 hrs: Laboratory Results - last 24 hr 04/11/21 04/11/21 Range/Units 05:17 05:17 WBC 4.96 (4.0-11.0) K/uL RBC 4.31 (4.30-5.90) M/uL Hgb 12.3 (12.0-16.0) g/dL Hct 38.2 (36.0-46.0) % MCV 88.6 (80.0-98.0) fL MCH 28.5 (27.0-32.0) pg MCHC 32.2 (31.0-37.0) g/dL RDW Std Deviation 40.4 (28.0-62.0) fl RDW Coeff of Sammi 13 (11.0-15.0) % Plt Count 243 (150-400) K/uL MPV 10.80 (7.40-12.00) fL Add Manual Diff YES Neutrophils % (Manual) 75 (48.0-80.0) % Lymphocytes % (Manual) 19 (16.0-40.0) % Monocytes % (Manual) 6 (0.0-15.0) % Nucleated RBC % 0.0 /100WBC Absolute Seg Neuts 3.7 (1.4-5.7) Lymphocytes # (Manual) 0.9 (0.6-2.4) Monocytes # (Manual) 0.3 (0.0-0.8) Nucleated RBCs # 0 K/uL Sodium 138 (136-145) mmol/L Potassium 4.1 (3.5-5.1) mmol/L Chloride 101 (98-107) mmol/L Carbon Dioxide 31.6 (21.0-32.0) mmol/L BUN 15 (7.0-18.0) mg/dL Creatinine 0.7 (0.6-1.0) mg/dL Est Cr Clr Drug Dosing 99.35 mL/min Estimated GFR (MDRD) > 60.0 ml/min Glucose 141 H (74-106) mg/dL Calcium 8.4 L (8.5-10.1) mg/dL Total Bilirubin 0.3 (0.2-1.0) mg/dL AST 99 H (15-37) IU/L ALT 196 H (14-63) IU/L Alkaline Phosphatase 141 H (46-116) U/L Total Protein 6.6 (6.4-8.2) g/dL Albumin 2.8 L (3.4-5.0) g/dL Globulin 3.8 (2.6-4.0) g/dL Albumin/Globulin Ratio 0.7 L (0.9-1.6) Result Diagrams: 04/11/21 05:17 04/11/21 05:17 Sepsis Event Note - Evaluation Sepsis Screening Result: No Definite Risk - Focused Exam Vital Signs: Vital Signs Temp Pulse Resp BP Pulse Ox 04/11/21 13:00 36.2 C 59 L 18 120/74 91 L 04/11/21 08:37 36.2 C 54 L 18 121/71 91 L 04/11/21 05:00 36.4 C 58 L 18 93/68 91 L - Problem List Review Problem List Initiated/Reviewed/Updated: Yes - My Orders Last 24 Hours: My Active Orders 04/12/21 05:11 CBC WITH AUTO DIFF [HEME] AM COMPREHENSIVE METABOLIC PN,CMP [CHEM] AM 04/12/21 07:30 Omeprazole 20 mg PO ACBREAKFAST - Plan Plan:: 55 yo female admitted for acute hypoxic respiratory failure from COVID pneumonia We continue dexamethasone and remdesivir 2 L NC supplemental oxygen, will wean as tolerated. lovenox for dvt prophylaxis dispo: likely home tomorrow
[2021-04-11] MEDS: Dexamethasone 4 MG Tab PO SCH (17:39)
[2021-04-11] MEDS: REMDESIVIR 100 MG in Sodium Chloride 0.9% 100 ML IV SCH (17:44)
[2021-04-11] MEDS: SUMAtriptan 50 MG Tab PO PRN (23:49)
[2021-04-11] MEDS: Enoxaparin 40 MG/0.4 ML Syringe SUBCUT SCH (23:55)
[2021-04-12] MEDS: Omeprazole 20 MG Cap.CR PO SCH (06:52)
[2021-04-12 08:30] LABS: BLOOD UREA NITROGEN,BUN 14 mg/dL (7.0-18.0); CARBON DIOXIDE,CO2 31.6 mmol/L (21.0-32.0); CHLORIDE,CL 101 mmol/L (98-107); GLUCOSE RANDOM 112 mg/dL (74-106); POTASSIUM,K 3.8 mmol/L (3.5-5.1); SODIUM,NA 140 mmol/L (136-145)
[2021-04-12] MEDS: Propranolol 20 MG Tab PO SCH ×2 (11:25→21:31)
[2021-04-12] MEDS: Acetaminophen 325 MG Tab PO PRN ×2 (11:26→17:10)
--- NOTE | 2021-04-12 16:26 | PCM.PN ---
- General Info Date of Service: 04/12/21 Admission Dx/Problem (Free Text): Admission Diagnosis/Problem Admission Diagnosis/Problem Hypoxia Subjective Update: Seen at bedside, resting comfortably, had been taken off the oxygen and was saturating 94% on room air, patient states she feels much better but would want to stay 1 more day as she still feels pretty weak. Functional Status: Reports: Tolerating Diet, Urinating. Denies: Ambulating - Review of Systems General: Reports: Weakness, Fatigue, Malaise. Denies: Fever Pulmonary: Reports: Shortness of Breath. Denies: Cough, Sputum Gastrointestinal: Denies: Abdominal Pain, Constipation Genitourinary: Denies: Dysuria, Frequency, Burning Musculoskeletal: Denies: Neck Pain, Shoulder Pain, Arm Pain Skin: Denies: Cyanosis, Jaundice, Mottled Psychiatric: Denies: Confusion, Depression, Mood Lability - Patient Data Vitals - Most Recent: Last Vital Signs Temp 37.1 C 04/12/21 11:28 Pulse 67 04/12/21 11:28 Resp 18 04/12/21 11:28 BP 120/73 04/12/21 11:28 Pulse Ox 92 L 04/12/21 11:28 Weight - Most Recent: 92.986 kg I&O - Last 24 Hours: Intake & Output 04/12/21 04/12/21 04/12/21 06:59 14:59 22:59 Intake Total 600 Output Total 0 Balance 600 Lab Results Last 24 Hours: Laboratory Results - last 24 hr 04/12/21 04/12/21 Range/Units 07:34 07:34 WBC 6.02 (4.0-11.0) K/uL RBC 4.81 (4.30-5.90) M/uL Hgb 14.3 (12.0-16.0) g/dL Hct 42.5 (36.0-46.0) % MCV 88.4 (80.0-98.0) fL MCH 29.7 (27.0-32.0) pg MCHC 33.6 (31.0-37.0) g/dL RDW Std Deviation 40.5 (28.0-62.0) fl RDW Coeff of Sammi 13 (11.0-15.0) % Plt Count 267 (150-400) K/uL MPV 10.30 (7.40-12.00) fL Neut % (Auto) 80.7 H (48.0-80.0) % Lymph % (Auto) 11.8 L (16.0-40.0) % [place] % (Auto) 7.3 (0.0-15.0) % Eos % (Auto) 0.0 (0.0-7.0) % Baso % (Auto) 0.2 (0.0-1.5) % Neut # (Auto) 4.9 (1.4-5.7) K/uL Lymph # (Auto) 0.7 (0.6-2.4) K/uL [place] # (Auto) 0.4 (0.0-0.8) K/uL Eos # (Auto) 0.0 (0.0-0.7) K/uL Baso # (Auto) 0.0 (0.0-0.1) K/uL Nucleated RBC % 0.0 /100WBC Nucleated RBCs # 0 K/uL Sodium 140 (136-145) mmol/L Potassium 3.8 (3.5-5.1) mmol/L Chloride 101 (98-107) mmol/L Carbon Dioxide 31.6 (21.0-32.0) mmol/L BUN 14 (7.0-18.0) mg/dL Creatinine 0.7 (0.6-1.0) mg/dL Est Cr Clr Drug Dosing 99.35 mL/min Estimated GFR (MDRD) > 60.0 ml/min Glucose 112 H (74-106) mg/dL Calcium 9.0 (8.5-10.1) mg/dL Total Bilirubin 0.5 (0.2-1.0) mg/dL AST 43 H (15-37) IU/L ALT 154 H (14-63) IU/L Alkaline Phosphatase 151 H (46-116) U/L Total Protein 7.3 (6.4-8.2) g/dL Albumin 3.1 L (3.4-5.0) g/dL Globulin 4.2 H (2.6-4.0) g/dL Albumin/Globulin Ratio 0.7 L (0.9-1.6) Med Orders - Current: Current Medications Acetaminophen (Acetaminophen 325 Mg Tab) 650 mg PO Q4H PRN PRN Reason: Pain (Mild 1-3)/fever Last Admin: 04/12/21 11:26 Dose: 650 mg Documented by: Dexamethasone (Dexamethasone 4 Mg Tab) 6 mg PO Q24H [facility] Last Admin: 04/11/21 17:39 Dose: 6 mg Documented by: Enoxaparin Sodium (Enoxaparin 40 Mg/0.4 Ml Syringe) 40 mg SUBCUT Q24H [facility] [place] Last Admin: 04/11/21 23:55 Dose: 40 mg Documented by: Guaifenesin/Codeine Phosphate (Codeine/Guaifenesin 10-100 Mg/5 Ml Syrup 5 Ml Cup) 5 ml PO Q6H PRN PRN Reason: Cough Last Admin: 04/11/21 18:49 Dose: 5 ml Documented by: Ibuprofen (Ibuprofen 400 Mg Tab) 400 mg PO Q6H PRN PRN Reason: Pain (mild 1-3) Omeprazole (Omeprazole 20 Mg Cap.Cr) 20 mg PO ACBREAKFAST [facility] [place] Last Admin: 04/12/21 06:52 Dose: 20 mg Documented by: Ondansetron HCl (Ondansetron 4 Mg/2 Ml Sdv) 4 mg IVPUSH Q4H PRN PRN Reason: Nausea Last Admin: 04/09/21 09:43 Dose: 4 mg Documented by: Propranolol HCl (Propranolol 20 Mg Tab) 40 mg PO BID [facility] [place] Last Admin: 04/12/21 11:25 Dose: 40 mg Documented by: Sumatriptan Succinate (Sumatriptan 50 Mg Tab) 100 mg PO .AT ONSET OF MIGRAIN PRN PRN Reason: migraine Last Admin: 04/11/21 23:49 Dose: 100 mg Documented by: Discontinued Medications Acetaminophen (Acetaminophen 500 Mg Tab) 1,000 mg PO ONETIME ONE Stop: 04/07/21 18:38 Last Admin: 04/07/21 18:47 Dose: 1,000 mg Documented by: Dexamethasone (Dexamethasone 10 Mg/Ml Sdv) 10 mg IVPUSH ONETIME ONE Stop: 04/07/21 18:00 Last Admin: 04/07/21 18:47 Dose: 10 mg Documented by: Remdesivir 200 mg/ Sodium (Chloride) 250 mls @ 250 mls/hr IV ONETIME ONE Stop: 04/07/21 18:00 Last Admin: 04/07/21 18:47 Dose: 250 mls/hr Documented by: Remdesivir 100 mg/ Sodium (Chloride) 100 mls @ 100 mls/hr IV Q24H [facility] [place] Stop: 04/11/21 18:59 Last Admin: 04/11/21 17:44 Dose: 100 mls/hr Documented by: Omeprazole (Omeprazole 20 Mg Cap.Cr) 20 mg PO DAILY [facility] [place] Last Admin: 04/11/21 08:34 Dose: 20 mg Documented by: - Exam Quality Assessment: No: Supplemental Oxygen General: Alert, Oriented, Cooperative, No Acute Distress. No: Mild Distress, Moderate Distress, Lethargic, Obtunded Neck: Supple Lungs: Normal Respiratory Effort, Decreased Breath Sounds. No: Crackles, Wheezing Cardiovascular: Regular Rate, Regular Rhythm GI/Abdominal Exam: Normal Bowel Sounds, Soft, Non-Tender - Patient Data Lab Results Last 24 hrs: Laboratory Results - last 24 hr 04/12/21 04/12/21 Range/Units 07:34 07:34 WBC 6.02 (4.0-11.0) K/uL RBC 4.81 (4.30-5.90) M/uL Hgb 14.3 (12.0-16.0) g/dL Hct 42.5 (36.0-46.0) % MCV 88.4 (80.0-98.0) fL MCH 29.7 (27.0-32.0) pg MCHC 33.6 (31.0-37.0) g/dL RDW Std Deviation 40.5 (28.0-62.0) fl RDW Coeff of Sammi 13 (11.0-15.0) % Plt Count 267 (150-400) K/uL MPV 10.30 (7.40-12.00) fL Neut % (Auto) 80.7 H (48.0-80.0) % Lymph % (Auto) 11.8 L (16.0-40.0) % [place] % (Auto) 7.3 (0.0-15.0) % Eos % (Auto) 0.0 (0.0-7.0) % Baso % (Auto) 0.2 (0.0-1.5) % Neut # (Auto) 4.9 (1.4-5.7) K/uL Lymph # (Auto) 0.7 (0.6-2.4) K/uL [place] # (Auto) 0.4 (0.0-0.8) K/uL Eos # (Auto) 0.0 (0.0-0.7) K/uL Baso # (Auto) 0.0 (0.0-0.1) K/uL Nucleated RBC % 0.0 /100WBC Nucleated RBCs # 0 K/uL Sodium 140 (136-145) mmol/L Potassium 3.8 (3.5-5.1) mmol/L Chloride 101 (98-107) mmol/L Carbon Dioxide 31.6 (21.0-32.0) mmol/L BUN 14 (7.0-18.0) mg/dL Creatinine 0.7 (0.6-1.0) mg/dL Est Cr Clr Drug Dosing 99.35 mL/min Estimated GFR (MDRD) > 60.0 ml/min Glucose 112 H (74-106) mg/dL Calcium 9.0 (8.5-10.1) mg/dL Total Bilirubin 0.5 (0.2-1.0) mg/dL AST 43 H (15-37) IU/L ALT 154 H (14-63) IU/L Alkaline Phosphatase 151 H (46-116) U/L Total Protein 7.3 (6.4-8.2) g/dL Albumin 3.1 L (3.4-5.0) g/dL Globulin 4.2 H (2.6-4.0) g/dL Albumin/Globulin Ratio 0.7 L (0.9-1.6) Result Diagrams: 04/12/21 07:34 04/12/21 07:34 Sepsis Event Note - Evaluation Sepsis Screening Result: No Definite Risk - Focused Exam Vital Signs: Vital Signs Temp Pulse Resp BP Pulse Ox 04/12/21 11:28 37.1 C 67 18 120/73 92 L 04/12/21 07:45 36.4 C 68 18 118/72 90 L - Problem List & Annotations (1) COVID SNOMED Code(s): 331114654 Code(s): U07.1 - COVID-19 Status: Acute Current Visit: Yes (2) Hypoxia SNOMED Code(s): 900568786 Code(s): R09.02 - HYPOXEMIA Status: Acute Current Visit: Yes (3) Major depressive disorder SNOMED Code(s): 812546688 Code(s): F32.9 - MAJOR DEPRESSIVE DISORDER, SINGLE EPISODE, UNSPECIFIED Status: Acute Priority: High Current Visit: No Qualifiers: Major depression recurrence: recurrent (4) Migraine SNOMED Code(s): 42238783 Code(s): G43.909 - MIGRAINE, UNSP, NOT INTRACTABLE, WITHOUT STATUS MIGRAINOSUS Status: Acute Current Visit: No - Problem List Review Problem List Initiated/Reviewed/Updated: Yes - Plan Plan:: 55 yo female admitted for acute hypoxic respiratory failure from COVID pneumonia continue dexamethasone. Patient has finished course of remdesivir Currently on room air, will try ambulatory pulse ox lovenox for dvt prophylaxis dispo: likely home tomorrow
[2021-04-12] MEDS: Dexamethasone 4 MG Tab PO SCH (17:50)
[2021-04-12] MEDS: Codeine/guaiFENesin 10-100 MG/5 ML Syrup 5 ML Cup PO PRN (19:03)
[2021-04-13] MEDS: Codeine/guaiFENesin 10-100 MG/5 ML Syrup 5 ML Cup PO PRN (00:30)
[2021-04-13] MEDS: Enoxaparin 40 MG/0.4 ML Syringe SUBCUT SCH (00:34)
[2021-04-13 04:45] VITALS: PULSE 61
[2021-04-13 07:10] LABS: BLOOD UREA NITROGEN,BUN 13 mg/dL (7.0-18.0); CARBON DIOXIDE,CO2 30.9 mmol/L (21.0-32.0); CHLORIDE,CL 99 mmol/L (98-107); GLUCOSE RANDOM 142 mg/dL (74-106); POTASSIUM,K 4.1 mmol/L (3.5-5.1); SODIUM,NA 137 mmol/L (136-145)
[2021-04-13] MEDS: Omeprazole 20 MG Cap.CR PO SCH (07:39)
[2021-04-13] MEDS: Propranolol 20 MG Tab PO SCH (08:41)
[2021-04-13 08:45] VITALS: BP 119/73
--- NOTE | 2021-04-13 09:41 | PCM.DCSUM1 ---
Discharge Summary - Hospital Course Brief History: 55 yo female who presents with 9 days of fever, chills, cough, and shortness of breath. Patient tested positive for COVID on 04/04/21. Patient is unvaccinated. She was was requiring 2 liters to keep sats above 90%. Diagnosis: Stroke: No - Discharge Data Discharge Date: 04/13/21 Discharge Disposition: Home, Self-Care 01 Condition: Stable - Referral to Home Health Primary Care Physician: Juan Abernathy MD - Discharge Diagnosis/Problem(s) (1) Acute respiratory failure with hypoxia SNOMED Code(s): 42042460, 842420628 ICD Code: J96.01 - ACUTE RESPIRATORY FAILURE WITH HYPOXIA Status: Acute (2) COVID-19 SNOMED Code(s): 023329743 ICD Code: U07.1 - COVID-19 Status: Acute - Patient Summary/Data Hospital Course: Admission diagnoses Acute hypoxic respiratory failure COVID-19 Viral pneumonia Discharge diagnoses Acute hypoxic respiratory failure improved, COVID-19, Viral pneumonia Nya was admitted secondary to acute hypoxic respiratory failure secondary to COVID-19 with viral pneumonia. She was treated with 5 days of remdesivir along with dexamethasone. She steadily improved and was weaned off oxygen from 2 L nasal cannula. Patient had continued weakness but this also steadily improved. Patient completed 5 days of remdesivir and has completed 6 days of dexamethasone. Today she is satting 91% on room air but with activity oxygen saturations decreased to 86%. On 1 L nasal cannula with activity she is satting 92%. Patient will be discharged home with oxygen 1 L with activities. She is up ambulatory within the home and is in need of portable oxygen. Patient will continue 4 more days of dexamethasone to complete 10-day course due to leaving the hospital on intermittent oxygen. Patient is continue home medications. She is to complete 20-day quarantine from CDC guidelines for severe COVID-19. She is to return to work on April 19 she may get extension if needed from PCP. She was counseled on continuing to mask and socially distance in public. She was highly encouraged to receive Covid vaccination when she is feeling improved. All questions and concerns addressed prior to discharge. She is to follow-up with her PCP in 7 to 10 days return to the ER clinic sooner if concerns should arise. - Patient Instructions Diet: Regular Diet as Tolerated Activity: As Tolerated Showering/Bathing: May Shower Notify Provider of: Fever, Increased Pain, Swelling and Redness, Drainage, Nausea and/or Vomiting Other/Special Instructions: Quarantine for total of 20 days which would be Apr 19. COntinue to mask and socially distance. Encourage Vaccination once feeling improved - Discharge Plan *PRESCRIPTION DRUG MONITORING PROGRAM REVIEWED*: Not Applicable *COPY OF PRESCRIPTION DRUG MONITORING REPORT IN PATIENT DANIEL: Not Applicable Prescriptions/Med Rec: dexAMETHasone [Dexamethasone] 6 mg PO Q24H #6 tablet Home Medications: Home Meds Omeprazole Magnesium [Prilosec Otc] 20 mg PO DAILY 04/07/21 [History] Estazolam 4 mg PO BEDTIME PRN 04/08/21 [History] Pantoprazole Sodium [Protonix] 40 mg PO DAILY 04/08/21 [History] SUMAtriptan [Imitrex] 100 mg PO .AT ONSET OF MIGRAIN PRN MDD 200 mg 04/08/21 [History] traZODone HCl [Trazodone HCl] 100 mg PO BEDTIME 04/08/21 [History] Propranolol [Inderal] 40 mg PO BID tablet 04/13/21 [Rx] dexAMETHasone [Dexamethasone] 6 mg PO Q24H #6 tablet 04/13/21 [Rx] Oxygen Therapy Mode: Nasal Cannula Oxygen Flow Rate (L/min): 1 (with activity) Patient Handouts: COVID-19 Frequently Asked Questions, COVID-19, Home Oxygen Use, Adult, COVID-19: How to Protect Yourself and Others - [facility], Dexamethasone tablets Referrals: Juan Abernathy MD [Primary Care Provider] - 04/21/21 3:00 pm - Discharge Summary/Plan Comment DC Time >30 min.: No Total # of Minutes for Discharge Time: 25 - Patient Data Vitals - Most Recent: Last Vital Signs Temp 98.1 F 04/13/21 08:45 Pulse 61 04/13/21 08:45 Resp 16 04/13/21 08:45 BP 119/73 04/13/21 08:45 Pulse Ox 90 L 04/13/21 08:45 Weight - Most Recent: 92.986 kg I&O - Last 24 hours: Intake & Output 04/12/21 04/13/21 04/13/21 22:59 06:59 14:59 Intake Total 1320 800 Output Total 0 Balance 1320 800 Lab Results - Last 24 hrs: Laboratory Results - last 24 hr 04/13/21 04/13/21 Range/Units 06:09 06:09 WBC 6.68 (4.0-11.0) K/uL RBC 4.71 (4.30-5.90) M/uL Hgb 14.1 (12.0-16.0) g/dL Hct 41.3 (36.0-46.0) % MCV 87.7 (80.0-98.0) fL MCH 29.9 (27.0-32.0) pg MCHC 34.1 (31.0-37.0) g/dL RDW Std Deviation 40.8 (28.0-62.0) fl RDW Coeff of Sammi 13 (11.0-15.0) % Plt Count 282 (150-400) K/uL MPV 10.30 (7.40-12.00) fL Neut % (Auto) 85.6 H (48.0-80.0) % Lymph % (Auto) 9.1 L (16.0-40.0) % [place] % (Auto) 5.2 (0.0-15.0) % Eos % (Auto) 0.0 (0.0-7.0) % Baso % (Auto) 0.1 (0.0-1.5) % Neut # (Auto) 5.7 (1.4-5.7) K/uL Lymph # (Auto) 0.6 (0.6-2.4) K/uL [place] # (Auto) 0.4 (0.0-0.8) K/uL Eos # (Auto) 0.0 (0.0-0.7) K/uL Baso # (Auto) 0.0 (0.0-0.1) K/uL Nucleated RBC % 0.0 /100WBC Nucleated RBCs # 0 K/uL Sodium 137 (136-145) mmol/L Potassium 4.1 (3.5-5.1) mmol/L Chloride 99 (98-107) mmol/L Carbon Dioxide 30.9 (21.0-32.0) mmol/L BUN 13 (7.0-18.0) mg/dL Creatinine 0.7 (0.6-1.0) mg/dL Est Cr Clr Drug Dosing 99.35 mL/min Estimated GFR (MDRD) > 60.0 ml/min Glucose 142 H (74-106) mg/dL Calcium 8.8 (8.5-10.1) mg/dL Total Bilirubin 0.5 (0.2-1.0) mg/dL AST 22 (15-37) IU/L ALT 111 H (14-63) IU/L Alkaline Phosphatase 141 H (46-116) U/L Total Protein 7.3 (6.4-8.2) g/dL Albumin 3.0 L (3.4-5.0) g/dL Globulin 4.3 H (2.6-4.0) g/dL Albumin/Globulin Ratio 0.7 L (0.9-1.6) Med Orders - Current: Current Medications Acetaminophen (Acetaminophen 325 Mg Tab) 650 mg PO Q4H PRN PRN Reason: Pain (Mild 1-3)/fever Last Admin: 04/12/21 17:10 Dose: 650 mg Documented by: Dexamethasone (Dexamethasone 4 Mg Tab) 6 mg PO Q24H [facility] Last Admin: 04/12/21 17:50 Dose: 6 mg Documented by: Enoxaparin Sodium (Enoxaparin 40 Mg/0.4 Ml Syringe) 40 mg SUBCUT Q24H [facility] Last Admin: 04/13/21 00:34 Dose: 40 mg Documented by: Guaifenesin/Codeine Phosphate (Codeine/Guaifenesin 10-100 Mg/5 Ml Syrup 5 Ml Cup) 5 ml PO Q6H PRN PRN Reason: Cough Last Admin: 04/13/21 00:30 Dose: 5 ml Documented by: Ibuprofen (Ibuprofen 400 Mg Tab) 400 mg PO Q6H PRN PRN Reason: Pain (mild 1-3) Omeprazole (Omeprazole 20 Mg Cap.Cr) 20 mg PO ACBREAKFAST [facility] Last Admin: 04/13/21 07:39 Dose: 20 mg Documented by: Ondansetron HCl (Ondansetron 4 Mg/2 Ml Sdv) 4 mg IVPUSH Q4H PRN PRN Reason: Nausea Last Admin: 04/09/21 09:43 Dose: 4 mg Documented by: Propranolol HCl (Propranolol 20 Mg Tab) 40 mg PO BID [facility] Last Admin: 04/13/21 08:41 Dose: 40 mg Documented by: Sumatriptan Succinate (Sumatriptan 50 Mg Tab) 100 mg PO .AT ONSET OF MIGRAIN PRN PRN Reason: migraine Last Admin: 04/11/21 23:49 Dose: 100 mg Documented by: Discontinued Medications Acetaminophen (Acetaminophen 500 Mg Tab) 1,000 mg PO ONETIME ONE Stop: 04/07/21 18:38 Last Admin: 04/07/21 18:47 Dose: 1,000 mg Documented by: Dexamethasone (Dexamethasone 10 Mg/Ml Sdv) 10 mg IVPUSH ONETIME ONE Stop: 04/07/21 18:00 Last Admin: 04/07/21 18:47 Dose: 10 mg Documented by: Remdesivir 200 mg/ Sodium (Chloride) 250 mls @ 250 mls/hr IV ONETIME ONE Stop: 04/07/21 18:00 Last Admin: 04/07/21 18:47 Dose: 250 mls/hr Documented by: Remdesivir 100 mg/ Sodium (Chloride) 100 mls @ 100 mls/hr IV Q24H TOM Stop: 04/11/21 18:59 Last Admin: 04/11/21 17:44 Dose: 100 mls/hr Documented by: Omeprazole (Omeprazole 20 Mg Cap.Cr) 20 mg PO DAILY [facility] Last Admin: 04/11/21 08:34 Dose: 20 mg Documented by:
== END 2021-04-13 11:45 | disposition home or self-care (01) | DRG 137 ==
LOC: MW.ED 17:42 → MW.ICU 19:17 → MW.MS 04-08 15:30
PROVIDERS: ADMIT Internal Medicine; ATTEND Internal Medicine
PROC: XW033E5 Introduction of Remdesivir Anti-infective into Peripheral Vein, Percutaneous Approach, New Technology Group 5 (ICD-10-PCS; principal; 2021-04-07)
PROC: 3E0333Z Introduction of Anti-inflammatory into Peripheral Vein, Percutaneous Approach (ICD-10-PCS; 2021-04-07)
DX: U07.1 COVID-19 (principal); J96.01 Acute respiratory failure with hypoxia; J12.82 Pneumonia due to coronavirus disease 2019; H54.7 Unspecified visual loss; M19.90 Unspecified osteoarthritis, unspecified site; G89.29 Other chronic pain; M54.2 Cervicalgia; G43.909 Migraine, unspecified, not intractable, without status migrainosus; F41.9 Anxiety disorder, unspecified; Z98.890 Other specified postprocedural states; Z79.899 Other long term (current) drug therapy; Z90.49 Acquired absence of other specified parts of digestive tract; Z86.718 Personal history of other venous thrombosis and embolism; Z90.710 Acquired absence of both cervix and uterus; Z98.1 Arthrodesis status
CPT/HCPCS: 36415; 71045; 71045-26; 80053; 82248; 83605; 83735; 84100; 84484; 85025; 96374; 99283; 99285-25; A9270-GY; J1100; J1650; J2405; J7050; J8540

== ENCOUNTER 2021-09-17 10:17 | Emergency (ER) | payer BC ==
[2021-09-17] MEDS ORDERED: Dexamethasone 10 MG/ML SDV IM ONE (11:20)
[2021-09-17 12:38] VITALS: BP 119/71; PULSE 57
== END 2021-09-17 12:39 | disposition home or self-care (01) ==
LOC: MW.ED 10:17
DX: S39.012A Strain of muscle, fascia and tendon of lower back, initial encounter (principal); I10 Essential (primary) hypertension; X50.0XXA Overexertion from strenuous movement or load, initial encounter
CPT/HCPCS: 81003; 96372; 99283; J1100

== ENCOUNTER 2021-10-25 10:52 | Emergency (ER) | payer BC, OTHER ==
[2021-10-25] MEDS ORDERED: Dexamethasone 10 MG/ML SDV IVPUSH ONE (10:53)
[2021-10-25] MEDS ORDERED: Ketorolac 30 MG/ML SDV IVPUSH ONE (10:53)
[2021-10-25] MEDS ORDERED: HYDROmorphone 1 MG/ML Syringe IVPUSH ONE ×2 (10:53→12:41)
[2021-10-25] MEDS ORDERED: Orphenadrine 60 MG/2 ML Inj IM ONE (10:55)
[2021-10-25 16:29] VITALS: BP 164/99; PULSE 60
== END 2021-10-25 13:45 | disposition home or self-care (01) ==
LOC: MW.ED 10:52
DX: M54.50 Low back pain, unspecified (principal); I10 Essential (primary) hypertension
CPT/HCPCS: 96372; 96374; 96375; 96376; 99283; J1100; J1170; J1885; J2360

== ENCOUNTER 2021-11-01 11:08 | Emergency (ER) | payer BC ==
[2021-11-01] MEDS ORDERED: Orphenadrine 60 MG/2 ML Inj IM ONE (11:32)
[2021-11-01] MEDS ORDERED: Acetaminophen/oxyCODONE 325-10 MG Tab PO ONE (11:32)
[2021-11-01 12:52] VITALS: BP 149/95; PULSE 113
== END 2021-11-01 12:55 | disposition home or self-care (01) ==
LOC: MW.ED 11:08
DX: M54.50 Low back pain, unspecified (principal); I10 Essential (primary) hypertension
CPT/HCPCS: 96372; 99283; A9270; J2360

== ENCOUNTER 2021-11-11 09:42 | Emergency (ER) | payer BC ==
[2021-11-11] MEDS ORDERED: Orphenadrine 60 MG/2 ML Inj IM ONE (10:41)
[2021-11-11] MEDS ORDERED: Ketorolac 30 MG/ML SDV IVPUSH ONE (10:41)
[2021-11-11] MEDS ORDERED: HYDROmorphone 1 MG/ML Syringe IVPUSH ONE (10:42)
[2021-11-11] MEDS ORDERED: HYDROmorphone 2 MG/ML Syringe IVPUSH ONE (10:47)
[2021-11-11 11:21] VITALS: BP 167/104; PULSE 73
== END 2021-11-11 11:16 | disposition home or self-care (01) ==
LOC: MW.ED 09:42
DX: G89.29 Other chronic pain (principal); M54.50 Low back pain, unspecified; I10 Essential (primary) hypertension
CPT/HCPCS: 96372; 96374; 96375; 99283; J1170; J1885; J2360; 99284

== ENCOUNTER 2023-07-26 17:46 | Emergency (ER) | payer BC ==
[2023-07-26 20:14] VITALS: BP 138/96; PULSE 75
== END 2023-07-26 19:20 | disposition home or self-care (01) ==
LOC: MW.ED 17:46
DX: R60.0 Localized edema (principal); Z86.16 Personal history of COVID-19; Z90.49 Acquired absence of other specified parts of digestive tract
CPT/HCPCS: 93970; 93970-26; 99282; 99283

== ENCOUNTER 2023-08-29 17:31 | Emergency (ER) | payer OTHER, BC ==
[2023-08-29] MEDS ORDERED: Sodium Chloride 0.9% 10 ML Syringe FLUSH PRN (17:37)
[2023-08-29] MEDS ORDERED: Sodium Chloride 0.9% 2.5 ML Syringe FLUSH PRN (17:37)
[2023-08-29 17:52] LABS: BASOPHILS ABSOLUTE AUTO 0.04 K/uL (0.00-0.20); BASOPHILS PERCENT AUTO 0.7 % (0.0-1.0); EOSINOPHILS ABSOLUTE AUTO 0.14 K/uL (0.00-0.45); EOSINOPHILS PERCENT AUTO 2.4 % (0.0-6.0); HEMATOCRIT 40.4 % (37.0-47.0); HEMOGLOBIN 13.9 g/dL (12.0-16.0); IMMATURE GRAN ABSOLUTE AUTO 0.02 K/uL (0.00-0.05); IMMATURE GRAN PERCENT AUTO 0.3 % (0.0-0.4); LYMPHOCYTES ABSOLUTE AUTO 1.55 K/uL (1.00-4.80); LYMPHOCYTES PERCENT AUTO 26.6 % (24.0-44.0); MEAN CORPUSCULAR HEMOGLOBIN 31.1 pg (28.0-32.0); MEAN CORPUSCULAR HGB CONC 34.4 g/dL (32.0-36.0); MEAN CORPUSCULAR VOLUME 90.4 fL (83.0-99.0); MEAN PLATELET VOLUME 9.7 fL (9.4-12.3); MONOCYTES ABSOLUTE AUTO 0.48 K/uL (0.00-0.80); MONOCYTES PERCENT AUTO 8.2 % (0.0-8.0); NEUTROPHILS ABSOLUTE AUTO 3.59 K/uL (1.80-7.70); NEUTROPHILS PERCENT AUTO 61.8 % (41.0-71.0); PLATELET COUNT,PLT 226 K/uL (150-400); RED BLOOD CELL COUNT 4.47 M/uL (4.10-5.30); WHITE BLOOD CELL COUNT,WBC 5.82 K/uL (3.9-11.3)
[2023-08-29 17:59] LABS: INR 0.96 (0.86-1.11); PTT,PARTIAL THROMBOPLSTIN TIME 25.6 SEC (23.9-30.7)
[2023-08-29] MEDS ORDERED: Naloxone 0.4 MG/ML SDV IVPUSH PRN (18:02)
[2023-08-29] MEDS ORDERED: HYDROmorphone 2 MG/ML Syringe IVPUSH ONE (18:02)
[2023-08-29] MEDS ORDERED: Iopamidol 755 MG/ML 500 ML Multipack Bottle IVPUSH STA (18:13)
[2023-08-29 18:53] LABS: ALBUMIN 3.6 g/dL (3.4-5.0); BILIRUBIN TOTAL 0.3 mg/dL (0.2-1.0); CARBON DIOXIDE,CO2 28.2 mmol/L (21.0-32.0); CREATININE 0.8 mg/dL (0.6-1.0); EST CRCL DRUG DOSING (CG) 76.36 mL/min; POTASSIUM,K 3.7 mmol/L (3.5-5.1); PROTEIN TOTAL,TP 7.3 g/dL (6.4-8.2)
[2023-08-29 19:21] VITALS: BP 150/70; PULSE 62
== END 2023-08-29 19:05 | disposition home or self-care (01) ==
LOC: MW.ED 17:31
DX: M06.88 Other specified rheumatoid arthritis, vertebrae (principal); M54.2 Cervicalgia; M54.40 Lumbago with sciatica, unspecified side; V89.2XXA Person injured in unspecified motor-vehicle accident, traffic, initial encounter
CPT/HCPCS: 36415; 70450; 71260; 72125; 72131; 74177; 80053; 83690; 85025; 85610; 85730; 96374; 99284; J1170; J3490; Q9967